=== PATIENT | female | born 1955 | race African-American/Black ===

== ENCOUNTER 2017-01-02 04:14 | Inpatient (IN) | payer MEDICARE, OTHER ==
[2017-01-02] VITALS (7 sets, daily range): BP systolic 105–190; BP diastolic 58–90; PULSE 76–98; RESP 18–20; TEMP 97.6–98.5; O2SAT 91–100
[~2017-01-02 04:14] MED LIST: CLAR10CA3 PO; DIAZ5TAB PO; DULO20 PO; HYDR-3288 PO; LOSA50TA PO; METF500T PO; PROB1CAP12 PO; ULTR50TA5 PO; VENTAER INH
[2017-01-02] MEDS ORDERED: SODIUM CHLOR 0.9% 1000 ML INJ 1,000 ML IV SCH ×2 (04:50→11:00)
[2017-01-02] MEDS ORDERED: ONDANSETRON HCL 4 MG/2 ML VIAL IVP ONE (05:00)
[2017-01-02] MEDS ORDERED: SODIUM CHLORIDE 0.9% FLUSH 10 ML FLUSH IV FLUSH PRN ×3 (05:00→16:00)
[2017-01-02] MEDS ORDERED: HYDROmorphone HCL PF 1 MG/ML VIAL IVS ONE (05:00)
--- NOTE | 2017-01-02 05:14 | RADRPT ---
EXAM DATE/TIME: 01/02/2017 04:46 [facility] COMPARISON: CHEST SINGLE AP, July 23, 2015, 15:28. INDICATIONS : Chest pain. MEDICAL HISTORY : Asthma. SURGICAL HISTORY : None. ENCOUNTER: Initial ACUITY: 1 day PAIN SCORE: 4/10 LOCATION: Bilateral lower chest FINDINGS: A single view of the chest demonstrates the lungs to be symmetrically aerated without evidence of mas s, infiltrate or effusion. The cardiomediastinal contours are unremarkable. Osseous structures are intact. CONCLUSION: No acute disease. No significant change has occurred. Elbert Castillo MD on January 02, 2017 at 5:12 Board Certified Radiologist. This report was verified electronically.
[2017-01-02 05:38] LABS: AUTOMATED NEUTROPHIL # 6.7 TH/MM3 (1.8-7.7); BASOPHIL # 0.1 TH/MM3 (0-0.2); BASOPHIL % 0.5 % (0.0-2.0); EOSINOPHIL % 0.5 % (0.0-4.0); HEMATOCRIT 34.1 % (35.0-46.0); HEMO FLAGS DIFF FINAL; LYMPH % 26.5 % (9.0-44.0); LYMPHOCYTE # 2.6 TH/MM3 (1.0-4.8); MEAN CELL VOLUME 93.3 FL (80.0-100.0); MEAN CORPUSCULAR HEMOGLOBIN 31.1 PG (27.0-34.0); MEAN CORPUSCULAR HGB CONC 33.4 % (32.0-36.0); NEUT % 67.5 % (16.0-70.0); PLATELET COUNT 287 TH/MM3 (150-450); RED BLOOD COUNT 3.65 MIL/MM3 (4.00-5.30); RED CELL DISTRIBUTION WIDTH 12.5 % (11.6-17.2); WHITE BLOOD COUNT 9.9 TH/MM3 (4.0-11.0)
--- NOTE | 2017-01-02 05:47 | PD ---
HPI Chief Complaint: Abdominal Pain Time Seen by Provider: 04:47 Travel History International Travel<30 days: No Contact w/Intl Traveler<30days: No Traveled to known affect area: No History of Present Illness HPI This is a 61-year-old female who has a history of a Pancho-en-Y gastric bypass by Dr. Felix who presents to the emergency department with one night of abdominal discomfort, constant, worsening, associated with nausea. She says she had a normal bowel movement earlier this evening. She denies any diarrhea, fevers or chills. She says she had pain like this once before right after she had her surgery and she had a bowel obstruction at that time. PFSH Past Medical History Hx Anticoagulant Therapy: No Arthritis: Yes Asthma: Yes Autoimmune Disease: No Blood Disorders: No Bipolar Disorder: No Anxiety: Yes Depression: No Heart Rhythm Problems: Yes Cancer: No Cardiac Catheterization: Yes Cardiovascular Problems: Yes (HTN) High Cholesterol: No Chemotherapy: No Chest Pain: Yes Congestive Heart Failure: Yes COPD: No Cerebrovascular Accident: No Diabetes: Yes Patient Takes Glucophage: Yes Diminished Hearing: No Endocrine: Yes Gastrointestinal Disorders: Yes (GERD) GERD: Yes Glaucoma: No Genitourinary: No Headaches: Yes Hepatitis: No Hiatal Hernia: No Hypertension: Yes Immune Disorder: No Implanted Vascular Access Dvce: Yes Kidney Stones: No Musculoskeletal: Yes (CHRONIC BACK PAIN, RIGHT KNEE PAIN) Neurologic: Yes (HX LUMBAR FUSION, PAIN LEFT SHOULDER INTO ARM ) Psychiatric: Yes (CLAUSTROPHOBIC) Reproductive: No Respiratory: No Immunizations Current: Yes Migraines: No Myocardial Infarction: No Radiation Therapy: No Renal Failure: No Seizures: No Sickle Cell Disease: No Sleep Apnea: Yes (uses c- pap) Thyroid Disease: Yes (HYPO) Ulcer: Yes PNEUMOCCOCAL Vaccine (Year): 1 Menopausal: Yes Past Surgical History Abdominal Surgery: Yes (GASTRIC BYPASS, HIATAL HERNIA REPAIR) AICD: No Appendectomy: No Arteriovenous Shunt: No Body Medical Devices: LUMBAR HARDWARE Cardiac Surgery: No Cholecystectomy: Yes Coronary Artery Bypass Graft: No Ear Surgery: No Endocrine Surgery: Yes (TORRES CARPAL TUNNEL SURGERY 02/2014) Eye Surgery: Yes (TORRES CATARACTS) Gynecologic Surgery: Yes (TOTAL ABDOMINAL HYSTERECTOMY) Hysterectomy: Yes Insulin Pump: No Joint Replacement: Yes (BILATERAL KNEES) Oral Surgery: No Pacemaker: No Thoracic Surgery: No Other Surgery: Yes (gastric bypass) Social History Alcohol Use: No Tobacco Use: No Substance Use: No Allergies-Medications (Allergen,Severity, Reaction): Coded Allergies: Seafood (Verified Allergy, Severe, HIVES , 04/23/16) PT STATES INTERMEDIATE REACTION PER PT HIVES AND TONGUE SWELLING Shellfish (Verified Allergy, Severe, HIVES, TONGUE SWELLS, 04/23/16) PT STATES AN INTERMEDIATE REACTION Nonsteroidal Anti-Inflammatory Agts (Verified Adverse Reaction, Severe, BLEEDING, 04/23/16) Aspirin (Verified Adverse Reaction, Intermediate, Bleeding, 04/23/16) Reported Meds & Prescriptions Reported Meds & Active Scripts Active Reported Acidophilus (Probiotic Product) 1 Cap Cap 1 Cap PO TID Ventolin Hfa 18 GM Inh (Albuterol Sulfate) 90 Mcg/Act Aer 2 Puff INH Q4H PRN Claritin (Loratadine) 10 Mg Cap 10 Mg PO HS Cymbalta DR (Duloxetine HCl) 20 Mg Capdr 20 Mg PO DAILY Diazepam 5 Mg Tab 5 Mg PO Q8HR PRN Losartan (Losartan Potassium) 50 Mg Tab 50 Mg PO BID [place] (Hydrocodone-Acetaminophen) 7.5-325 mg Tab 1-2 Tab PO Q6H PRN Ultram (Tramadol HCl) 50 Mg Tab 50 Mg PO Q6H PRN Metformin (Metformin HCl) 500 Mg Tab 500 Mg PO BIDPC With meals Review of Systems Except as stated in HPI: all other systems reviewed are Neg Physical Exam Narrative GENERAL:Well appearing, no acute distress SKIN: Focused skin assessment warm and dry. HEAD: Atraumatic. Normocephalic. EYES: Pupils equal and round. No injection or drainage. ENT: Moist mucous membranes NECK: Trachea midline. CARDIOVASCULAR: Regular rate and rhythm. No murmur appreciated. RESPIRATORY: Clear to auscultation. Breath sounds equal bilaterally. GASTROINTESTINAL: Abdomen soft, diffusely tender to palpation with no rebound or guarding. MUSCULOSKELETAL: No obvious deformities. NEUROLOGICAL: Awake and alert. No obvious cranial nerve deficits. Moving all extremities. PSYCHIATRIC: Appropriate mood and affect; insight and judgment normal. Data Data Last Documented VS Vital Signs Date Time Temp Pulse Resp B/P Pulse Ox O2 Delivery O2 Flow Rate FiO2 01/02/17 04:52 89 18 98 01/02/17 04:17 98.4 190/90 Room Air Orders Complete Blood Count With Diff (01/02/17 04:50) Comprehensive Metabolic Panel (01/02/17 04:50) Lipase (01/02/17 04:50) Ct Abd/Pel W Iv Contrast(Rout) (01/02/17 04:50) Iv Access Insert/Monitor (01/02/17 04:50) Ecg Monitoring (01/02/17 04:50) Oximetry (01/02/17 04:50) Ondansetron Inj (Zofran Inj) (01/02/17 05:00) Sodium Chlor 0.9% 1000 Ml Inj (Ns 1000 M (01/02/17 04:50) Sodium Chloride 0.9% Flush (Ns Flush) (01/02/17 05:00) Chest, Single Ap (01/02/17 04:50) Hydromorphone Pf Inj (Dilaudid Pf Inj) (01/02/17 05:00) Lactic Acid (01/02/17 04:50) Hydromorphone Pf Inj (Dilaudid Pf Inj) (01/02/17 06:00) Iohexol 350 Inj (Omnipaque 350 Inj) (01/02/17 06:22) Admit Order (Ed Use Only) (01/02/17 06:41) Labs Laboratory Tests Test 01/02/17 01/02/17 05:02 05:30 Sodium Level 140 MEQ/L Potassium Level 4.1 MEQ/L Chloride Level 103 MEQ/L Carbon Dioxide Level 27.1 MEQ/L Anion Gap 10 MEQ/L Blood Urea Nitrogen 12 MG/DL Creatinine 1.12 MG/DL Estimat Glomerular Filtration 59 ML/MIN Rate Random Glucose 118 MG/DL Lactic Acid Level 1.5 mmol/L Calcium Level 9.4 MG/DL Total Bilirubin 0.5 MG/DL Aspartate Amino Transf 33 U/L (AST/SGOT) Alanine Aminotransferase 56 U/L (ALT/SGPT) Alkaline Phosphatase 147 U/L Total Protein 8.8 GM/DL Albumin 3.9 GM/DL Lipase 387 U/L White Blood Count 9.9 TH/MM3 Red Blood Count 3.65 MIL/MM3 Hemoglobin 11.4 GM/DL Hematocrit 34.1 % Mean Corpuscular Volume 93.3 FL Mean Corpuscular Hemoglobin 31.1 PG Mean Corpuscular Hemoglobin 33.4 % Concent Red Cell Distribution Width 12.5 % Platelet Count 287 TH/MM3 Mean Platelet Volume 8.1 FL Neutrophils (%) (Auto) 67.5 % Lymphocytes (%) (Auto) 26.5 % Monocytes (%) (Auto) 5.0 % Eosinophils (%) (Auto) 0.5 % Basophils (%) (Auto) 0.5 % Neutrophils # (Auto) 6.7 TH/MM3 Lymphocytes # (Auto) 2.6 TH/MM3 Monocytes # (Auto) 0.5 TH/MM3 Eosinophils # (Auto) 0.0 TH/MM3 Basophils # (Auto) 0.1 TH/MM3 CBC Comment DIFF FINAL Differential Comment MDM Medical Decision Making Medical Screen Exam Complete: Yes Emergency Medical Condition: Yes Interpretation(s) Afebrile, no tachycardia, hypertensive No leukocytosis Anemia Electrolytes are reassuring Lactic acid is 1.5 Last 24 hours Impressions Chest X-Ray 01/02/17449 Signed Impressions: Service Date/Time: Monday, January 02, 2017 04:46 - CONCLUSION: No acute disease. No significant change has occurred. Elbert Castillo MD Abdomen/Pelvis CT 01/02/17449 Signed Impressions: Service Date/Time: Monday, January 02, 2017 06:04 - CONCLUSION: There are multiple mildly to moderately dilated loops of distal small bowel suggestive of either ileus or partial small bowel structure. The appendix is unremarkable. Elbert Castillo MD Differential Diagnosis Internal hernia, ulcer, bowel obstruction, perforation Narrative Course This is a 61-year-old female whose had a Pancho-en-Y in the past 2 presents to the emergency department with abdominal discomfort and vomiting. She was placed on a monitor and an IV was established. Upright plain films demonstrates no free air. Labs are obtained which are reassuring with a normal lactic acid. CT abdomen and pelvis demonstrates an ileus versus partial small bowel traction. Patient will be admitted to Dr. Tan for further management. Diagnosis Primary Impression: Partial small bowel obstruction Admitting Information Admitting Physician Requests: Admit Zakiya Ramos MD Jan 02, 2017 05:47
[2017-01-02 05:49] LABS: ANION GAP 10 MEQ/L (5-15); AST (GOT) 33 U/L (15-37); BICARBONATE 27.1 MEQ/L (21.0-32.0); BLOOD UREA NITROGEN 12 MG/DL (7-18); CHLORIDE 103 MEQ/L (98-107); GLOMERULAR FILTRATION RATE 59 ML/MIN (>89); POTASSIUM 4.1 MEQ/L (3.5-5.1); SODIUM (NA) 140 MEQ/L (136-145)
[2017-01-02 05:54] LABS: ALKALINE PHOSPHATASE 147 U/L (45-117); ALT (GPT) 56 U/L (10-53); TOTAL BILIRUBIN ADULT 0.5 MG/DL (0.2-1.0)
[2017-01-02] MEDS ORDERED: HYDROmorphone HCL PF 1 MG/ML VIAL IV PUSH ONE (06:00)
[2017-01-02] MEDS ORDERED: IOHEXOL 350 MG/ML 10 ML VIAL (for RAD DIAG) IV ONE (06:22)
--- NOTE | 2017-01-02 06:36 | RADRPT ---
EXAM DATE/TIME: 01/02/2017 06:04 [facility] COMPARISON: No previous studies available for comparison. INDICATIONS : Diffuse abdominal pain and nausea. IV CONTRAST: 88 cc Omnipaque 350 (iohexol) IV ORAL CONTRAST: No oral contrast ingested. RADIATION DOSE: 12.15 CTDIvol (mGy) MEDICAL HISTORY : Hypertension. Gastroesophageal reflux disease. Asthma. SURGICAL HISTORY : Gastric bypass. Cholecystectomy.Hysterectomy.Hernia repair. Lumbar fusion. ENCOUNTER: Initial ACUITY: 1 day PAIN SCALE: 10/10 LOCATION: All quadrants. TECHNIQUE: Volumetric scanning of the abdomen and pelvis was performed. Using automated exposure control and ad justment of the mA and/or kV according to patient size, radiation dose was kept as low as reasonably achievable to obtain optimal diagnostic quality images. DICOM format image data is available electro nically for review and comparison. FINDINGS: LOWER LUNGS: The visualized lower lungs are clear. LIVER: Homogeneous density without lesion. There is no dilation of the biliary tree. No gallbladder, surgi luis miguel removed. SPLEEN: Normal size without lesion. PANCREAS: Within normal limits. KIDNEYS: Normal in size and shape. There is no mass, stone or hydronephrosis. ADRENAL GLANDS: Within normal limits. VASCULAR: There is no aortic aneurysm. BOWEL/MESENTERY: There is evidence of previous abdominal surgery in the left upper quadrant at the level of the stomac h. Proximal small bowel is unremarkable. However, there are multiple mildly to moderately dilated loo ps of distal small bowel with fluid and air fluid levels. The appendix is unremarkable. No definite i nflammatory changes are seen. There is stool in the colon. No free fluid or loculated fluid collectio ns.. ABDOMINAL WALL: Within normal limits. RETROPERITONEUM: There is no lymphadenopathy. BLADDER: No wall thickening or mass. REPRODUCTIVE: Within normal limits. INGUINAL: There is no lymphadenopathy or hernia. MUSCULOSKELETAL: Within normal limits for patient age. There is evidence of previous lumbar spinal surgery with fusion involving the lower lumbar spine. There are some degenerative changes of the bony structures. CONCLUSION: There are multiple mildly to moderately dilated loops of distal small bowel suggestive of either ileu s or partial small bowel structure. The appendix is unremarkable. Elbert Castillo MD on January 02, 2017 at 6:29 Board Certified Radiologist. This report was verified electronically.
--- NOTE | 2017-01-02 08:41 | EKG ---
Date Performed: 01/02/2017 Time Performed: 04:42:52 PTAGE: 61 years EKG: Sinus rhythm NORMAL ECG PREVIOUS TRACING : 12/16/2015 09.19 DOCTOR: Timur Coulter Interpretating Date/Time 01/02/2017 08:40:14
[2017-01-02] MEDS ORDERED: HYDROmorphone HCL PF 1 MG/ML VIAL IV ONE (10:00)
[2017-01-02] MEDS ORDERED: MORPHINE SULFATE 4 MG/ML INJ IV PRN ×3 (10:15)
[2017-01-02] MEDS ORDERED: oxyCODONE/ACETAMINOPHEN 5 MG/325 MG TAB PO PRN ×3 (10:15→16:00)
[2017-01-02] MEDS ORDERED: PROPOFOL 200 MG/20 ML AMP IV ONE (11:56)
[2017-01-02] MEDS ORDERED: ePHEDrine/NS 25 MG/5 ML SYR IV ONE (11:56)
[2017-01-02] MEDS ORDERED: NEOSTIGMINE 3 MG/3 ML SYR IV ONE (11:57)
[2017-01-02] MEDS ORDERED: LACTATED RINGER'S 1000 ML INJ 1,000 ML IV ONE (11:57)
[2017-01-02] MEDS ORDERED: PHENYLEPH/NS 1000 MCG/10 ML SYR IV ONE (11:57)
[2017-01-02] MEDS ORDERED: fentaNYL CITRATE 250 MCG/5 ML AMP ONE (12:50)
[2017-01-02] MEDS ORDERED: MIDAZOLAM HCL 2 MG/2 ML VIAL ONE (12:52)
[2017-01-02] MEDS ORDERED: HYDROmorphone HCL PF 2 MG/ML VIAL ONE (13:11)
[2017-01-02] MEDS ORDERED: BUPIVACAINE/EPINEPHRINE 0.5% PF 10 ML VIAL ONE (14:49)
[2017-01-02] MEDS ORDERED: ceFAZolin 2 GM PREMIX 50 ML ONE (15:05)
[2017-01-02] MEDS ORDERED: METOCLOPRAMIDE HCL 10 MG/2 ML VIAL IVS PRN (16:00)
[2017-01-02] MEDS ORDERED: HYDROmorphone HCL PF 1 MG/ML VIAL IV PRN (16:00)
[2017-01-02] MEDS ORDERED: Post-op Orders (for Pharmacy) MISC XX ONE (16:00)
[2017-01-02] MEDS ORDERED: MAGNESIUM HYDROXIDE SUSP 30 ML CUP PO PRN (16:00)
[2017-01-02] MEDS ORDERED: ONDANSETRON HCL 4 MG/2 ML VIAL IV PRN (16:00)
[2017-01-02] MEDS ORDERED: GLUCAGON 1 MG/ML VIAL OTHER PRN (17:00)
[2017-01-02] MEDS: SODIUM CHLOR 0.9% 1000 ML INJ 1,000 ML IV SCH (17:00)
[2017-01-02] MEDS ORDERED: DEXTROSE 50% IN WATER 50 ML VIAL(D50) IV PUSH PRN (17:00)
[2017-01-02] MEDS ORDERED: DO NOT ADM ANY ANTICOAGULANT DRUGS PRN (17:45)
[2017-01-02] MEDS: metroNIDAZOLE 500 MG INJ 100 ML IV SCH (18:00)
--- NOTE | 2017-01-02 19:15 | MH ---
cc: ÁNGEL LEOS M.D. DATE OF ADMISSION 01/02/2017 DATE OF 1955 HISTORY This is a 61-year-old female with a history of laparoscopic Pancho-en-Y gastric bypass as well as total abdominal hysterectomy who presents to the emergency room with complaints of abdominal pain. The patient states the pain started the day prior to presentation. She had associated nausea and vomiting. She had a bowel movement this early a.m. as well as she has passed some gas as well. No fevers, chills. No urinary symptoms. PAST MEDICAL HISTORY Significant for coronary artery disease, hypertension, type 2 diabetes. PAST SURGICAL HISTORY Significant for above as well as cholecystectomy. Knee surgery. ALLERGIES SHE HAS ALLERGIES TO SEAFOOD, SHELLFISH AND NSAIDS. MEDICATIONS She is on medication at home that includes: 1. Metformin. 2. [place]. 3. Losartan. 4. Diazepam. 5. Cymbalta. 6. Ventolin. SOCIAL HISTORY She does not smoke or drink alcohol. FAMILY HISTORY Noncontributory. REVIEW OF SYSTEMS Significant for above. All other 10-point review negative. PHYSICAL EXAMINATION GENERAL: On exam she is laying in bed in distress secondary to pain. HEENT: Her pupils are equal and reactive. Trachea is midline. LUNGS: Respirations clear. CARDIOVASCULAR: Regular. GASTROINTESTINAL: Soft, positive tenderness in the lower abdomen. MUSCULOSKELETAL: No deformities. NEUROLOGICAL: Nonfocal. LABORATORY DATA The patient's blood work, her hemoglobin is 11, WBC 9.9. Her alk phos 147, creatinine 1.1. IMAGING STUDIES CAT scan of the abdomen and pelvis revealed dilated distal small bowel. ASSESSMENT This is a patient who has had multiple abdominal operations with findings of bowel obstruction. PLAN Will take the patient to the operating room for laparoscopy with possible lysis of adhesion, possible bowel resection. Risks and benefits explained to the patient to include but not be exclusive to infection, bleeding, solid organ injury, hollow organ injury. Technical aspects explained as well as pre and postoperative course. The patient verbalized understanding, consent was obtained. Will proceed to OR. MD JAN Aldana/HU /6:54 PM /7:09 PM
[2017-01-02] MEDS ORDERED: SODIUM CHLORIDE 0.9% FLUSH 10 ML FLUSH IV FLUSH SCH (21:00)
[2017-01-02] MEDS: SODIUM CHLORIDE 0.9% FLUSH 10 ML FLUSH IV FLUSH SCH (21:00)
[2017-01-02] MEDS: INSULIN NovoLIN REGULAR SUPPLEMENTAL SCALE SQ SCH (21:00)
[2017-01-02] MEDS: LOSARTAN 50 MG TAB PO SCH (21:53)
[2017-01-02] MEDS: DOCUSATE SODIUM 100 MG CAP PO SCH (21:53)
[2017-01-02 22:22] LABS: AUTOMATED NEUTROPHIL # 7.2 TH/MM3 (1.8-7.7); BASOPHIL % 0.1 % (0.0-2.0); HEMATOCRIT 35.8 % (35.0-46.0); HEMO FLAGS DIFF FINAL; LYMPH % 5.6 % (9.0-44.0); LYMPHOCYTE # 0.4 TH/MM3 (1.0-4.8); MEAN CELL VOLUME 92.5 FL (80.0-100.0); MEAN CORPUSCULAR HEMOGLOBIN 30.8 PG (27.0-34.0); MEAN CORPUSCULAR HGB CONC 33.3 % (32.0-36.0); MONO % 1.5 % (0.0-8.0); NEUT % 92.8 % (16.0-70.0); PLATELET COUNT 275 TH/MM3 (150-450); RED BLOOD COUNT 3.87 MIL/MM3 (4.00-5.30); RED CELL DISTRIBUTION WIDTH 12.6 % (11.6-17.2); WHITE BLOOD COUNT 7.7 TH/MM3 (4.0-11.0)
[2017-01-02 22:35] LABS: BICARBONATE 26.9 MEQ/L (21.0-32.0); POTASSIUM 4.3 MEQ/L (3.5-5.1)
[2017-01-03] MEDS: metroNIDAZOLE 500 MG INJ 100 ML IV SCH ×2 (03:38→09:42)
[2017-01-03 04:00] VITALS: BP 108/55; PULSE 75; RESP 16; TEMP 97.8; O2SAT 92
[2017-01-03] MEDS: INSULIN NovoLIN REGULAR SUPPLEMENTAL SCALE SQ SCH ×4 (05:47→21:43)
[2017-01-03 08:00] VITALS: BP 104/55; PULSE 78; RESP 17; TEMP 97.7; O2SAT 94
[2017-01-03 08:16] LABS: AUTOMATED NEUTROPHIL # 6.7 TH/MM3 (1.8-7.7); BASOPHIL % 0.1 % (0.0-2.0); HEMATOCRIT 32.2 % (35.0-46.0); HEMO FLAGS DIFF FINAL; LYMPH % 10.7 % (9.0-44.0); LYMPHOCYTE # 0.9 TH/MM3 (1.0-4.8); MEAN CELL VOLUME 92.4 FL (80.0-100.0); MEAN CORPUSCULAR HGB CONC 33.5 % (32.0-36.0); MONO % 5.1 % (0.0-8.0); NEUT % 84.1 % (16.0-70.0); PLATELET COUNT 262 TH/MM3 (150-450); RED BLOOD COUNT 3.49 MIL/MM3 (4.00-5.30)
[2017-01-03] MEDS ORDERED: PANTOPRAZOLE SODIUM 40 MG VIAL IV SCH (09:00)
[2017-01-03] MEDS: DOCUSATE SODIUM 100 MG CAP PO SCH ×2 (09:42→21:42)
[2017-01-03] MEDS: SODIUM CHLOR 0.9% 1000 ML INJ 1,000 ML IV SCH ×2 (09:42→11:58)
[2017-01-03] MEDS: SODIUM CHLORIDE 0.9% FLUSH 10 ML FLUSH IV FLUSH SCH ×2 (09:42→21:43)
[2017-01-03] MEDS: LOSARTAN 50 MG TAB PO SCH ×2 (09:42→21:42)
[2017-01-03] MEDS: DULoxetine HCl DR 20 MG CAP PO SCH (09:42)
[2017-01-03] MEDS ORDERED: PERC5TAB12 PO (10:33)
[2017-01-03] MEDS: oxyCODONE/ACETAMINOPHEN 10 MG/325 MG TAB PO PRN (11:22)
[2017-01-03 12:00] VITALS: BP 108/60; PULSE 73; RESP 17; TEMP 96.9; O2SAT 94
--- NOTE | 2017-01-03 12:13 | HHI.PR ---
Subjective Subjective Notes 61yo female POD# laparoscopic lysis of adhesions. Laying in bed, complains of pos-op tenderness. Tolerating clear liquid diet Objective Vitals/I&O Vital Signs, 24 Hour Date Time Temp Pulse Resp B/P Pulse Ox O2 Delivery O2 Flow Rate FiO2 01/03/17 08:00 97.7 78 17 104/55 94 01/03/17 04:00 97.8 75 16 108/55 92 01/02/17 23:43 98.5 76 18 105/58 94 01/02/17 22:05 91 Nasal Cannula 2.00 01/02/17 20:33 97.6 86 18 120/64 91 01/02/17 19:00 98.2 66 14 123/63 97 Nasal Cannula 2 01/02/17 18:00 66 14 130/65 97 Nasal Cannula 2 01/02/17 17:45 68 14 133/65 98 Nasal Cannula 2 01/02/17 17:30 98.1 66 14 124/67 97 Nasal Cannula 2 01/02/17 17:15 66 14 136/74 96 Nasal Cannula 2 01/02/17 17:00 67 14 133/74 97 Nasal Cannula 2 01/02/17 16:45 69 14 124/61 96 Nasal Cannula 2 01/02/17 16:30 77 14 124/60 96 Nasal Cannula 2 01/02/17 16:18 97.9 82 14 117/59 96 Nasal Cannula 2 Allergies Coded Allergies Seafood (Verified Allergy, Severe, HIVES , 04/23/16) PT STATES INTERMEDIATE REACTION PER PT HIVES AND TONGUE SWELLING Shellfish (Verified Allergy, Severe, HIVES, TONGUE SWELLS, 04/23/16) PT STATES AN INTERMEDIATE REACTION Nonsteroidal Anti-Inflammatory Agts (Verified Adverse Reaction, Severe, BLEEDING, 04/23/16) Aspirin (Verified Adverse Reaction, Intermediate, Bleeding, 04/23/16) Intake/Outtake 01/03/17 01/03/17 10:59 22:59 Intake Total 687 ml Output Total 400 ml Balance 287 ml Kunal-Yoan Tapia Procedure Category Date Status Time Pantoprazole MED 01/04/17 Logged (Protonix) 09:00 Diet Full Liquid DIET 01/03/17 Transmitted Lunch Laboratory Tests per Janis Test 01/02/17 01/03/17 21:02 07:22 White Blood Count 7.7 TH/MM3 8.0 TH/MM3 Red Blood Count 3.87 MIL/MM3 3.49 MIL/MM3 Sodium Level 139 MEQ/L Potassium Level 4.3 MEQ/L Blood Urea Nitrogen 11 MG/DL Active Scripts Active Percocet (Oxycodone-Acetaminophen) 5-325 mg Tab 1 Tab PO Q4H PRN Reported Acidophilus (Probiotic Product) 1 Cap Cap 1 Cap PO TID Ventolin Hfa 18 GM Inh (Albuterol Sulfate) 90 Mcg/Act Aer 2 Puff INH Q4H PRN Claritin (Loratadine) 10 Mg Cap 10 Mg PO HS Cymbalta DR (Duloxetine HCl) 20 Mg Capdr 20 Mg PO DAILY Diazepam 5 Mg Tab 5 Mg PO Q8HR PRN Losartan (Losartan Potassium) 50 Mg Tab 50 Mg PO BID [place] (Hydrocodone-Acetaminophen) 7.5-325 mg Tab 1-2 Tab PO Q6H PRN Ultram (Tramadol HCl) 50 Mg Tab 50 Mg PO Q6H PRN Metformin (Metformin HCl) 500 Mg Tab 500 Mg PO BIDPC With meals Vital Signs Date Time Temp Pulse Resp B/P Pulse Ox O2 Delivery O2 Flow Rate FiO2 01/03/17 08:00 97.7 78 17 104/55 94 01/02/17 22:05 Nasal Cannula 2.00 Labs Laboratory Tests Test 01/02/17 01/02/17 01/03/17 13:40 21:02 07:22 Blood Type A POSITIVE Antibody Screen NEGATIVE White Blood Count 7.7 8.0 Red Blood Count 3.87 3.49 Hemoglobin 11.9 10.8 Hematocrit 35.8 32.2 Mean Corpuscular Volume 92.5 92.4 Mean Corpuscular Hemoglobin 30.8 31.0 Mean Corpuscular Hemoglobin 33.3 33.5 Concent Red Cell Distribution Width 12.6 13.0 Platelet Count 275 262 Mean Platelet Volume 8.5 8.3 Neutrophils (%) (Auto) 92.8 84.1 Lymphocytes (%) (Auto) 5.6 10.7 Monocytes (%) (Auto) 1.5 5.1 Eosinophils (%) (Auto) 0.0 0.0 Basophils (%) (Auto) 0.1 0.1 Neutrophils # (Auto) 7.2 6.7 Lymphocytes # (Auto) 0.4 0.9 Monocytes # (Auto) 0.1 0.4 Eosinophils # (Auto) 0.0 0.0 Basophils # (Auto) 0.0 0.0 CBC Comment DIFF FINAL DIFF FINAL Differential Comment Sodium Level 139 Potassium Level 4.3 Chloride Level 104 Carbon Dioxide Level 26.9 Anion Gap 8 Blood Urea Nitrogen 11 Creatinine 0.83 Estimat Glomerular Filtration 84 Rate Random Glucose 142 Calcium Level 8.9 Radiology Last Impressions Chest X-Ray 01/02/17449 Signed Impressions: Service Date/Time: Monday, January 02, 2017 04:46 - CONCLUSION: No acute disease. No significant change has occurred. Elbert Castillo MD Abdomen/Pelvis CT 01/02/17449 Signed Impressions: Service Date/Time: Monday, January 02, 2017 06:04 - CONCLUSION: There are multiple mildly to moderately dilated loops of distal small bowel suggestive of either ileus or partial small bowel structure. The appendix is unremarkable. Elbert Castillo MD Cardiovascular: Regular Lungs: Clear Abdomen: Post-op tenderness Extremities: Perfused Wound Wound : Wound Location: Abdomen Appearance: Clean & Dry A/P Assessment and Plan Advance diet as tolerated to softs Continue with PPI Continue with frequent ambulation Discharge Planning D/C home most likely tomorrow if doing well with diet Yoan Tapia [facility] Jan 03, 2017 12:13
--- NOTE | 2017-01-03 13:28 | MP ---
cc: ÁNGEL FELIX DATE OF SURGERY 01/03/2017 PREOPERATIVE DIAGNOSIS Bowel obstruction. POSTOPERATIVE DIAGNOSIS Bowel obstruction. PROCEDURE Laparoscopy with lysis of adhesions. SURGEON Ángel Felix MD ANESTHESIA General endotracheal anesthesia. ESTIMATED BLOOD LOSS Scant. FINDINGS Pelvic adhesions causing bowel obstruction. The patient had some adhesions in her upper abdomen at her gastrojejunostomy without obstruction. There is no internal hernias identified. The biliopancreatic limb as well as the Pancho limb appeared to be nondilated. The distal small bowel was dilated. There was a knuckle of bowel within the adhesive band that was dusky. Once the band was released, this segment of bowel perked up and appeared to of normal color. SPECIMENS None. COMPLICATIONS None. OPERATION The patient was brought to the operating room, placed on the operating table in supine position. Bilateral sequential inflation devices were placed on the lower extremities, general anesthesia instituted, Hennessy catheter placed, antibiotics initiated. The abdomen was prepped and draped sterilely. A point in the left upper quadrant was anesthetized with 0.25% Marcaine with epinephrine. A skin incision was made, a 5-mm OptiView port placed under direct vision and pneumoperitoneum created. Under direct vision a 5-mm right upper quadrant port and a 5-mm left lower quadrant port was placed. Prior to placement of all ports, the skin and peritoneum were anesthetized with 0.25% Marcaine with epinephrine. The abdominal cavity was inspected with findings as above. The adhesive band in the pelvis was focused on and this was released. The bowel caught within this bind perked up. The bowel was inspected to the terminal ileum. The bowel distal to this was decompressed. There were adhesions of the terminal ileum to the pelvis which were taken down. The bowel was inspected up to the jejunojejunostomy. There was a dilated segment distally that went into the decompressed segment. The rest of the findings were as above. At this point the operation was terminated. CO2 was released, all ports removed, all skin incisions closed with 4-0 Monocryl. The abdominal wall was cleaned and a sterile dressing placed. The patient was awakened and taken to the recovery room. MD JAN Aldana/JOSEPHINE /6:58 PM /1:19 PM
[2017-01-03] MEDS: ENOXAPARIN SODIUM 40 MG/0.4 ML SYRINGE SQ SCH (15:04)
[2017-01-03 16:00] VITALS: BP 105/59; PULSE 76; RESP 17; TEMP 97.2; O2SAT 95
[2017-01-03 20:00] VITALS: BP 124/63; PULSE 83; RESP 18; TEMP 97.6; O2SAT 98
[2017-01-04] VITALS: BP 133/63; PULSE 62; RESP 18; TEMP 98.1; O2SAT 94
[2017-01-04] MEDS: oxyCODONE/ACETAMINOPHEN 10 MG/325 MG TAB PO PRN (00:01)
[2017-01-04] MEDS: INSULIN NovoLIN REGULAR SUPPLEMENTAL SCALE SQ SCH ×3 (06:19→16:00)
[2017-01-04] MEDS: SODIUM CHLOR 0.9% 1000 ML INJ 1,000 ML IV SCH ×2 (07:58→08:09)
[2017-01-04 08:00] VITALS: BP 121/72; PULSE 69; RESP 17; TEMP 97.9; O2SAT 94
[2017-01-04] MEDS: SODIUM CHLORIDE 0.9% FLUSH 10 ML FLUSH IV FLUSH SCH (08:08)
[2017-01-04] MEDS: LOSARTAN 50 MG TAB PO SCH (08:08)
[2017-01-04] MEDS: DULoxetine HCl DR 20 MG CAP PO SCH (08:08)
[2017-01-04] MEDS: DOCUSATE SODIUM 100 MG CAP PO SCH (08:08)
[2017-01-04] MEDS ORDERED: PANTOPRAZOLE SODIUM 40 MG VIAL IV SCH (09:00)
[2017-01-04] MEDS ORDERED: PANTOPRAZOLE SOD 40 MG DELAYED RELEASE TAB PO SCH (09:00)
[2017-01-04 11:53] VITALS: O2SAT 98
[2017-01-04 12:00] VITALS: BP 115/74; PULSE 75; RESP 17; TEMP 98.1; O2SAT 96
--- NOTE | 2017-01-04 12:24 | HHI.PR ---
Subjective Subjective Notes 61yo female POD# laparoscopic lysis of adhesions, SBO. Sitting up in bed. Abd pain better. Denies nausea or vomiting. Tolerating clears Objective Vitals/I&O Vital Signs Date Time Temp Pulse Resp B/P Pulse Ox O2 Delivery O2 Flow Rate FiO2 01/04/17 08:12 16 01/04/17 08:00 97.9 69 121/72 94 01/02/17 22:05 Nasal Cannula 2.00 Radiology Last Impressions Chest X-Ray 01/02/17449 Signed Impressions: Service Date/Time: Monday, January 02, 2017 04:46 - CONCLUSION: No acute disease. No significant change has occurred. Elbert Castillo MD Abdomen/Pelvis CT 01/02/17449 Signed Impressions: Service Date/Time: Monday, January 02, 2017 06:04 - CONCLUSION: There are multiple mildly to moderately dilated loops of distal small bowel suggestive of either ileus or partial small bowel structure. The appendix is unremarkable. Elbert Castillo MD Cardiovascular: Regular Lungs: Clear Abdomen: Post-op tenderness Wound Wound : Wound Location: Abdomen Appearance: Clean & Dry A/P Assessment and Plan Advance diet to softs Continue with PPI Continue with frequent ambulation Discharge Planning D/C home most likely today if doing well with diet Yoan Tapia Jan 04, 2017 12:23
[2017-01-04] MEDS: ENOXAPARIN SODIUM 40 MG/0.4 ML SYRINGE SQ SCH (14:58)
[2017-01-04 16:00] VITALS: BP 129/72; PULSE 86; RESP 17; TEMP 98.6; O2SAT 99
[2017-01-04 17:40] VITALS: O2SAT 99
== END 2017-01-04 18:48 | disposition home or self-care (01) | DRG 337 ==
LOC: NEPE 04:14 → NEDA 06:43 → N07B 19:34
PROVIDERS: ADMIT Surgery; ATTEND Surgery
PROC: 0DNW4ZZ Release Peritoneum, Percutaneous Endoscopic Approach (ICD-10-PCS; principal; 2017-01-03)
DX: K56.5 Intestinal adhesions [bands] with obstruction (postinfection) (principal); E11.42 Type 2 diabetes mellitus with diabetic polyneuropathy; J45.909 Unspecified asthma, uncomplicated; I10 Essential (primary) hypertension; F41.9 Anxiety disorder, unspecified; K21.9 Gastro-esophageal reflux disease without esophagitis; E03.9 Hypothyroidism, unspecified; I25.10 Atherosclerotic heart disease of native coronary artery without angina pectoris; Z98.1 Arthrodesis status; Z79.84 Long term (current) use of oral hypoglycemic drugs
CPT/HCPCS: 71010; 74177; 80048; 80053; 82948; 83605; 83690; 85025; 86850; 86900; 86901; 93005; 94150; 96361; 96374; 96375; C9113; J0690; J1170; J1650; J2250; J2370; J2405; J2710; J3010; J7030; J7120; Q9967

== ENCOUNTER → 2017-04-26 | Outpatient (CLI) | payer MEDICARE, OTHER ==
[~2017-04-26] MED LIST changes: +COMMODE 3-IN-11 MIS; +CPMMACHINE; +ENOX30P SQ; +HYDR-3366 PO; +PERC5TAB12 PO; +TRAM50 PO; -ULTR50TA5 PO; +WALKER WHEELS/F1 MIS
== END ==
LOC: CPRE 11:38
PROVIDERS: ATTEND Orthopaedic Surgery Sports Medicine
DX: M79.609 Pain in unspecified limb (principal)

== ENCOUNTER 2017-05-13 08:24 | Inpatient (IN) | payer MEDICARE, OTHER ==
[~2017-05-13] VITALS: Ht 165.1 cm; Wt 100.4 kg
[~2017-05-13 08:24] MED LIST changes: -COMMODE 3-IN-11 MIS; -CPMMACHINE; -ENOX30P SQ; -HYDR-3288 PO; -HYDR-3366 PO; -WALKER WHEELS/F1 MIS
[2017-05-13] MEDS ORDERED: TRANEXAMIC ACID IV SCH (09:15)
[2017-05-13] MEDS ORDERED: SODIUM CHLORIDE 0.9% IV SCH (09:15)
[2017-05-13] MEDS ORDERED: VANCOMYCIN 1000 MG/NS 250 ML (for <70 kg) IV SCH ×2 (09:15)
[2017-05-13] MEDS ORDERED: ceFAZolin 1,000 MG/NS 100 ML IV SCH ×2 (09:15)
[2017-05-13] MEDS ORDERED: METOPROLOL TARTRATE 25 MG TAB PO PRN (09:15)
[2017-05-13] MEDS ORDERED: POVIDONE IODINE 7.5% SCRUB 118 ML BOTTLE TOPICAL SCH (09:15)
[2017-05-13] MEDS ORDERED: ROPIVACAINE PERI-ARTICULAR INJECTION. P-ARTICULR SCH ×5 (09:15)
[2017-05-13] MEDS ORDERED: SODIUM CHLORID 0.9% 500 ML IV PRN (09:15)
[2017-05-13] MEDS ORDERED: LACTATED RINGER'S 1000 ML IV PRN (09:15)
[2017-05-13] MEDS ORDERED: POVIDONE IODINE 5% (ANTISEPSIS KIT) 4 APPLICATIONS EACH NARE PRN (09:15)
[2017-05-13] MEDS ORDERED: CHLORHEXIDINE GLUCONATE 2 % 1 PACK (2 CLOTHS) TOPICAL PRN (09:15)
[2017-05-13] MEDS ORDERED: DEXAMETHASONE SOD PHOS 20 MG/5 ML VIAL IV SCH (09:15)
[2017-05-13] MEDS ORDERED: TRANEXAMIC PERI-ARTICULAR 3,000 MG/NS 100 ML P-ARTICULR SCH ×2 (09:15)
[2017-05-13] MEDS ORDERED: CHLORHEXIDINE GLUCONATE 4% SOLN 120 ML BTL TOPICAL SCH (09:15)
[2017-05-13] MEDS ORDERED: GENTAMICIN SULFATE 80 MG/2 ML VIAL ONE ×2 (09:32→09:33)
[2017-05-13] MEDS ORDERED: PERC5TAB12 PO (09:41)
[2017-05-13] MEDS ORDERED: ENOX30P SQ (09:42)
[2017-05-13] MEDS ORDERED: ACETAMINOPHEN/HYDROcodone 325 MG/7.5 MG TAB PO PRN (09:45)
[2017-05-13] MEDS ORDERED: NALOXONE HCL 0.4 MG/ML AMP IV PUSH PRN (09:45)
[2017-05-13] MEDS ORDERED: ONDANSETRON HCL 4 MG/2 ML VIAL IVP PRN (09:45)
[2017-05-13] MEDS ORDERED: ZOLPIDEM TARTRATE 5 MG TAB PO PRN (09:45)
[2017-05-13] MEDS ORDERED: BISACODYL 10 MG SUPP RECTAL PRN (09:45)
[2017-05-13] MEDS ORDERED: SODIUM CHLORIDE 0.9% FLUSH 5 ML FLUSH IVF PRN (09:45)
[2017-05-13] MEDS ORDERED: diphenhydrAMINE HCL 50 MG/ML VIAL IV PUSH PRN (09:45)
[2017-05-13] MEDS ORDERED: Post-op Orders (for Pharmacy) MISC XX ONE (09:45)
[2017-05-13] MEDS ORDERED: DIAZEPAM 5 MG TAB PO PRN (09:45)
[2017-05-13] MEDS ORDERED: MORPHINE SULFATE 4 MG/ML INJ IV PUSH PRN (09:45)
[2017-05-13] MEDS ORDERED: ACETAMINOPHEN 1000 MG/100 ML 100 ML IV ONE (10:14)
[2017-05-13] MEDS ORDERED: HYDROmorphone HCL PF 2 MG/ML VIAL ONE (12:15)
[2017-05-13] MEDS ORDERED: KETAMINE HCL 500 MG/5 ML VIAL ONE (12:16)
[2017-05-13] MEDS ORDERED: *MEPERIDINE 25 MG INJ VIAL PERIprocedural Use ONLY ONE (13:25)
[2017-05-13] MEDS ORDERED: DO NOT ADM ANY ANTICOAGULANT DRUGS PRN (13:26)
[2017-05-13] MEDS ORDERED: *morphine SULFATE 8 MG/ML PERIprocedure ONLY ONE ×2 (14:01→14:50)
[2017-05-13] MEDS: SODIUM CHLOR 0.9% 1000 ML INJ 1,000 ML IV SCH ×2 (14:06→21:22)
--- NOTE | 2017-05-13 14:12 | MP ---
cc: FRANSISCA MCGEE M.D. DATE OF SURGERY: 05/13/2017 PREOPERATIVE DIAGNOSIS Left knee failed arthroplasty. POSTOPERATIVE DIAGNOSIS Left knee failed arthroplasty. PROCEDURE Revision left total knee arthroplasty. SURGEON Dr. Fransisca Mcgee. HARD METALS ENGRAVER HAND Fransisca Benítez PA-C. ANESTHESIA General with an adductor canal nerve block. ESTIMATED BLOOD LOSS 100 cc. COMPLICATIONS None. IMPLANTS USED DePuy Attune, size 5 posterior stabilized femoral component, size 5 rotating platform tibial baseplate, size 10 mm polyethylene tibial insert, size 35 patella. JUSTIFICATION The patient is a 61-year-old female who has undergone a previous left knee arthroplasty procedure several years ago. She has had increasing pain and swelling of her knee. X-ray did confirm evidence of some loosening as well as advancement of her osteoarthritis. She has failed extensive prior conservative treatment and was counseled as to the risks, benefits and alternatives to a total knee arthroplasty. The risks were discussed which include but are not limited to anesthesia, bleeding, infection, damage to nerves and blood vessels, pain, stiffness, failure of hardware, blood clots, pulmonary embolism and even . The patient's pain is severe. It does interfere with activities of daily living. She did wish to proceed with revision surgery. PROCEDURE IN DETAIL A written consent was obtained. The patient was identified by name, taken to the operating room and placed supine on the operating table. General anesthesia was administered as well as two grams of IV Ancef and one gram of IV vancomycin. A well-padded tourniquet was placed on the left thigh. The left lower extremity was prepped and draped using isopropyl alcohol, Hibiclens solution and ChloraPrep solution. After a timeout was performed an Esmarch bandage was used to exsanguinate the left lower extremity and the tourniquet inflated to 300 mmHg. A longitudinal incision was made over the anterior aspect of the left knee. A medial parapatellar arthrotomy incision was performed. The patella was everted. A patellar resection guide was used to resect 9 mm of patella. A size 35 mm guide was placed. Three drill holes were placed and the 35 mm patellar trial fit well. Attention was turned to the femur where a flexible osteotome was used to excise the distal femoral component along with an oscillating saw. An intramedullary guide melvin was placed and the distal femoral guide was set to remove 11 mm of distal femur 5 degrees off the anatomic valgus axis alignment. An oscillating saw was used to perform the distal femoral cut. Attention was turned to the tibia where a flexible osteotome along with an oscillating saw was used to excise the tibial component. The extramedullary tibial guide was set to remove 1 mm below the lowest portion along the medial tibial plateau. The tibial guide was pinned in place. The tibia cut was performed. A 5 mm spacer block showed full extension with hyperextension. Attention was turned back to the femur where AP sizing block measured a size 5. The anterior reference 3 degree external rotation guide was used to pin a size [address] with measuring the epicondylar axis. An oscillating saw was used to perform the anterior, posterior and chamfer cuts. A size 5 PCL box guide was pinned in place and the PCL was box cut with an oscillating saw. The medial and lateral meniscus remnants were removed as well as bone and soft tissue debris from the posterior portion of the knee. A size 5 tibial baseplate was pinned in place and the tibia was drilled and punched. The trial components were evaluated and the final components cemented in place. With the current components the leg could achieve full extension to 0 degrees and flexion to 140. No evidence of tibial lift-off. Varus-valgus balance appeared appropriate and symmetric. The patella was noted to track centrally. The tourniquet was deflated. Bovie cautery was used for hemostasis. The surgical wound was thoroughly irrigated with sterile saline pulse lavage antibiotic-impregnated solution. The arthrotomy incision was closed with #1 Vicryl suture, the subcutaneous layer with 2-0 Vicryl suture and the skin was closed with Dermabond. Sterile dressing was applied. The patient tolerated the procedure with no intraoperative complications noted. Fransisca Benítez, physician surgery assistant certified, was present during the entire procedure to include patient positioning and the procedure itself. The medical necessity of a physician surgery assistant was indicated in this case due to the complexity of the procedure. He assisted with appropriate manipulation of the leg and also retraction of muscle, tendon, bone and neurovascular structures. He assisted with removal of the prosthesis as well as bone cuts and implantation of the prosthetic revision replacement. MD BONNIE Lockett/FELIPE /12:58 PM /1:53 PM
--- NOTE | 2017-05-13 14:42 | RADRPT ---
EXAM DATE/TIME: 05/13/2017 13:57 [place] COMPARISON: No previous studies available for comparison. INDICATIONS : Post op left knee surgery. MEDICAL HISTORY : None. SURGICAL HISTORY : None. ENCOUNTER: Initial ACUITY: 1 day PAIN SCORE: 10/10 LOCATION: Left knee FINDINGS: 2 views of the knee show a total knee prosthesis in good position. No fracture or dislocation is obse rved. Soft tissue swelling is noted. Air and fluid noted within the joint. CONCLUSION: Total knee arthroplasty in good position. Salazar Villatoro Jr., MD on May 13, 2017 at 14:40 Board Certified Radiologist. This report was verified electronically.
--- NOTE | 2017-05-13 14:46 | PD.CONS ---
HPI Service [facility] Hospitalists Consult Requested By Dr. Wallace Reason for Consult Medical management status post revision left total knee arthroplasty Primary Care Physician Blu Magana MD Diagnoses: History of Present Illness This is a 61-year-old female in for [place] Citizen male patient with past medical history which includes diabetes mellitus type 2, hypertension and prior hallucinations and disorientation post anesthesia. Patient is status post revision of left total knee arthroplasty by Dr. Wallace 05/13/2017. We've been consulted for assistance with postoperative medical management. Patient evaluated in PACU is drowsy postanesthesia denies disorientation or hallucinations. Patient reports burning sensation in the left lower extremity but offers no other complaints at this time. Patient denies shortness of breath chest pain nausea vomiting diarrhea constipation fevers or chills. Prior to the operation today patient reports she was in her normal state of health Review of Systems Constitutional: DENIES: Fatigue, Fever, Chills Eyes: DENIES: Blurred vision, Diplopia, Vision loss Respiratory: DENIES: Cough, Sputum production, Shortness of breath Cardiovascular: DENIES: Chest pain, Palpitations, Dyspnea on Exertion Gastrointestinal: DENIES: Abdominal pain, Constipation, Diarrhea Musculoskeletal: COMPLAINS OF: Joint pain (burning left lower extremity ) Neurologic: DENIES: Headache, Seizures, Speech Problems Psychiatric: DENIES: Anxiety, Confusion, Depression Past Family Social History Past Medical History diabetes mellitus type 2, hypertension and prior hallucinations and disorientation post anesthesia Past Surgical History Surgery, cataract surgery EGD, colonoscopy, gastric bypass, hysterectomy, left total knee arthroplasty and cholecystectomy Reported Medications Lovenox Inj (Enoxaparin Sodium) 30 Mg/0.3 Ml Syr 30 Mg SQ DAILY Percocet (Oxycodone-Acetaminophen) 5-325 mg Tab 1-2 Tab PO Q4H PRN Percocet (Oxycodone-Acetaminophen) 5-325 mg Tab 1 Tab PO Q4H PRN Acidophilus (Probiotic Product) 1 Cap Cap 1 Cap PO TID Ventolin Hfa 18 GM Inh (Albuterol Sulfate) 90 Mcg/Act Aer 2 Puff INH Q4H PRN Claritin (Loratadine) 10 Mg Cap 10 Mg PO HS Cymbalta DR (Duloxetine HCl) 20 Mg Capdr 20 Mg PO DAILY Diazepam 5 Mg Tab 5 Mg PO Q8HR PRN Losartan (Losartan Potassium) 50 Mg Tab 50 Mg PO BID Ultram (Tramadol HCl) 50 Mg Tab 50 Mg PO Q6H PRN Metformin (Metformin HCl) 500 Mg Tab 500 Mg PO BIDPC With meals Allergies: Coded Allergies: Fish Containing Products (Verified Allergy, Severe, HIVES , 04/26/17) PT STATES INTERMEDIATE REACTION PER PT HIVES AND TONGUE SWELLING shellfish derived (Verified Allergy, Severe, HIVES, TONGUE SWELLS, ) PT STATES AN INTERMEDIATE REACTION diclofenac (Verified Adverse Reaction, Severe, BLEEDING, 04/26/17) etodolac (Verified Adverse Reaction, Severe, BLEEDING, 04/26/17) flurbiprofen (Verified Adverse Reaction, Severe, BLEEDING, 04/26/17) ibuprofen (Verified Adverse Reaction, Severe, BLEEDING, 04/26/17) indomethacin (Verified Adverse Reaction, Severe, BLEEDING, 04/26/17) ketoprofen (Verified Adverse Reaction, Severe, BLEEDING, 04/26/17) ketorolac (Verified Adverse Reaction, Severe, BLEEDING, 04/26/17) naproxen (Verified Adverse Reaction, Severe, BLEEDING, 04/26/17) oxaprozin (Verified Adverse Reaction, Severe, BLEEDING, 04/26/17) aspirin (Verified Adverse Reaction, Intermediate, Bleeding, 04/26/17) Active Ordered Medications Current Medications Medications (Trade) Dose Ordered Sig/Wade Route Start Time Stop Time Status Last Admin Lactated Ringer's 1,000 ml @ 30 mls/hr Q24H PRN IV 05/13/17 09:15 05/16/17 09:14 05/13/17 09:00 Sodium Chloride 500 ml @ 30 mls/hr [id number] PRN IV 05/13/17 09:15 05/16/17 09:14 (Lopressor) 25 mg CHAIR FRAME BUILDER PRN PO 05/13/17 09:15 05/16/17 09:14 (Betadine 5% Antisepsis Kit) 1 applic CHAIR FRAME BUILDER PRN EACH NARE 05/13/17 09:15 05/16/17 09:14 (Chlorhexidine 2% Cloth) 3 pack CHAIR FRAME BUILDER PRN TOPICAL 05/13/17 09:15 05/16/17 09:14 05/13/17 08:30 (Betadine 7.5% Scrub) 1 applic ONCE TOPICAL 05/13/17 09:15 05/16/17 09:14 (Hibiclens 4% Top Soln) 1 applic ONCE TOPICAL 05/13/17 09:15 05/16/17 09:14 Cefazolin Sodium 1000 mg/Sodium Chloride 100 ml @ 200 mls/hr CHAIR FRAME BUILDER IV 05/13/17 09:15 05/16/17 09:14 05/13/17 11:00 Vancomycin HCl 1000 mg/Sodium Chloride 250 ml @ 250 mls/hr CHAIR FRAME BUILDER IV 05/13/17 09:15 05/16/17 09:14 05/13/17 11:00 Tranexamic Acid 1506 mg/Sodium Chloride 115.06 ml @ 200 mls/ hr ONCE IV 05/13/17 09:15 05/13/17 17:00 05/13/17 11:13 Ropivacaine 24.63 ml/Ketorolac Tromethamine 30 mg/Epinephrine HCl 0.5 mg/ Clonidine 80 mcg/ Sodium Chloride 100 ml @ 200 mls/hr ONCE P-ARTICULR 05/13/17 09:15 05/13/17 17:00 05/13/17 11:41 (Valium) 5 mg Q8HR PRN PO 05/13/17 09:45 (Cymbalta Dr) 20 mg DAILY PO 05/14/17 09:00 (Cozaar) 50 mg BID PO 05/13/17 21:00 (Glucophage) 500 mg BIDPC PO 05/13/17 18:00 Sodium Chloride 1,000 ml @ 100 mls/hr Q10H IV 05/13/17 10:00 05/13/17 14:06 (NS Flush) 2 ml UNSCH PRN IVF 05/13/17 09:45 (NS Flush) 2 ml BID IVF 05/13/17 21:00 Cefazolin Sodium 1000 mg/Sodium Chloride 100 ml @ 200 mls/hr Q6H IV 05/13/17 17:00 05/14/17 05:29 (Lovenox Inj) 30 mg Q24H SQ 05/14/17 01:00 (Morphine Inj) 3 mg Q3H PRN IV PUSH 05/13/17 09:45 ([place] 7.5-325 Mg) 1 tab Q4H PRN PO 05/13/17 09:45 ([place] 7.5-325 Mg) 2 tab Q4H PRN PO 05/13/17 09:45 05/13/17 15:52 (Theragran M Tab) 1 tab BID PO 05/14/17 21:00 07/13/17 20:59 (Zofran Inj) 4 mg Q6H PRN IVP 05/13/17 09:45 05/13/17 15:23 (Colace) 100 mg BID PO 05/14/17 21:00 (Ambien) 5 mg HS PRN PO 05/13/17 09:45 (Dulcolax Supp) 10 mg DAILY PRN RECTAL 05/13/17 09:45 (Narcan Inj) 0.4 mg UNSCH PRN IV PUSH 05/13/17 09:45 (Benadryl Inj) 25 mg Q6H PRN IV PUSH 05/13/17 09:45 Miscellaneous Information ALL NURSING DEPARTME... UNSCH PRN .XX 05/13/17 13:26 05/14/17 13:25 Family History Reviewed and noncontributory Social History Patient denies EtOH use tobacco use or illicit drug use Physical Exam Vital Signs Vital Signs Date Time Temp Pulse Resp B/P (MAP) Pulse Ox O2 Delivery O2 Flow Rate FiO2 05/13/17 13:25 97.4 105 20 140/86 (104) 98 Simple Mask 2 05/13/17 09:15 98.1 70 16 139/85 (103) 97 Physical Exam GENERAL: This is an obese, well-developed patient, drowsy postanesthesia but in no acute distress SKIN: Postoperative dressing dry and intact. Lower extremity HEAD: Atraumatic. Normocephalic. No temporal or scalp tenderness. EYES: Extraocular motions intact. No scleral icterus. No injection or drainage. CARDIOVASCULAR: Regular rate and rhythm RESPIRATORY: Clear to auscultation. Breath sounds equal bilaterally. GASTROINTESTINAL: Abdomen soft, non-tender, nondistended. Hypoactive bowel sounds MUSCULOSKELETAL: Extremities without clubbing, cyanosis, or edema. No joint tenderness, effusion, or edema noted. No calf tenderness. Negative Homans sign bilaterally. With the exception of left upper extremity postoperative dressing dry and intact NEUROLOGICAL: Drowsy postanesthesia denies hallucinations or confusion. No focal deficits appreciated. Motor and sensory grossly within normal limits. Five out of 5 muscle strength in all muscle groups, with the exception of left lower extremity. Normal speech. Assessment and Plan Problem List: (1) Failed total left knee replacement ICD Codes: T84.093A - Other mechanical complication of internal left knee prosthesis, initial encounter Plan: Failed left total knee replacement Provisional left total knee arthroplasty 01/03/2016 Patient underwent revision of left total knee arthroplasty today 05/13/[address] Rodrigo Perez as needed for pain PT CBC and BMP in a.m. Diabetes mellitus type 2 Diabetic diet Continue patient's home metformin 500 mg by mouth twice a day Hypertension Continue patient's home losartan 50 mg twice a day Monitor blood pressure trend Depression Continue patient's home Cymbalta DVT prophylaxis with Lovenox 39 g subcutaneous every 24 hours per orthopedic surgery (2) Hypothyroidism ICD Codes: E03.9 - Hypothyroidism, unspecified Status: Chronic (3) Diabetes ICD Codes: E11.9 - Type 2 diabetes mellitus without complications Status: Chronic (4) HTN (hypertension) ICD Codes: I10 - Essential (primary) hypertension Status: Chronic Jayjay Nava MD May 13, 2017 14:46 Marli Sanders May 13, 2017 16:29
[2017-05-13 15:27] VITALS: BP 135/72; PULSE 84; RESP 18; TEMP 96.5; O2SAT 95
[2017-05-13] MEDS: ACETAMINOPHEN/HYDROcodone 325 MG/7.5 MG TAB PO PRN ×2 (15:52→21:16)
[2017-05-13] MEDS: metFORMIN HCL 500 MG TAB PO SCH (17:43)
[2017-05-13 20:35] VITALS: BP 131/70; PULSE 66; RESP 18; TEMP 96.7; O2SAT 95
[2017-05-13] MEDS: SODIUM CHLORIDE 0.9% FLUSH 5 ML FLUSH IVF SCH (21:00)
[2017-05-13] MEDS: LOSARTAN 50 MG TAB PO SCH (21:16)
[2017-05-13 22:00] VITALS: O2SAT 94
[2017-05-13 23:50] VITALS: BP_SYST 110; BP_SYST 114; BP_DIAS 58; BP_DIAS 69; PULSE 68; RESP 17; RESP 18; TEMP 96.9; O2SAT 97
[2017-05-14] VITALS (8 sets, daily range): BP systolic 105–128; BP diastolic 56–71; PULSE 59–77; RESP 16–19; TEMP 96.7–98.4; O2SAT 93–98
[2017-05-14] MEDS: SODIUM CHLOR 0.9% 1000 ML INJ 1,000 ML IV SCH ×3 (01:49→20:22)
[2017-05-14] MEDS: ENOXAPARIN SODIUM 30 MG/0.3 ML SYRINGE SQ SCH (01:49)
[2017-05-14] MEDS: ACETAMINOPHEN/HYDROcodone 325 MG/7.5 MG TAB PO PRN ×4 (05:08→20:21)
[2017-05-14] MEDS: LOSARTAN 50 MG TAB PO SCH ×2 (07:30→20:21)
[2017-05-14] MEDS: metFORMIN HCL 500 MG TAB PO SCH ×2 (07:30→17:42)
[2017-05-14] MEDS: DULoxetine HCl DR 20 MG CAP PO SCH (07:31)
[2017-05-14] MEDS: SODIUM CHLORIDE 0.9% FLUSH 5 ML FLUSH IVF SCH ×2 (07:31→20:22)
[2017-05-14 07:36] LABS: HEMATOCRIT 28.7 % (35.0-46.0); MEAN CELL VOLUME 92.8 FL (80.0-100.0); MEAN CORPUSCULAR HEMOGLOBIN 31.1 PG (27.0-34.0); MEAN CORPUSCULAR HGB CONC 33.6 % (32.0-36.0); PLATELET COUNT 226 TH/MM3 (150-450); RED BLOOD COUNT 3.09 MIL/MM3 (4.00-5.30); RED CELL DISTRIBUTION WIDTH 12.7 % (11.6-17.2); REVIEW FLAG FINAL; WHITE BLOOD COUNT 10.9 TH/MM3 (4.0-11.0)
[2017-05-14 07:57] LABS: BICARBONATE 22.1 MEQ/L (21.0-32.0); POTASSIUM 4.3 MEQ/L (3.5-5.1)
--- NOTE | 2017-05-14 08:34 | PD.ORT.PN ---
Subjective Post Op Day #: 1 Subjective Remarks pain tolerable. has not done much with PT. Objective Vitals Vital Signs Date Time Temp Pulse Resp B/P (MAP) Pulse Ox O2 Delivery O2 Flow Rate FiO2 05/14/17 03:00 97.2 69 18 116/56 (76) 96 05/13/17 23:50 96.9 68 17 110/69 (83) 97 05/13/17 22:00 94 Nasal Cannula 2.00 05/13/17 20:35 96.7 66 18 131/70 (90) 95 05/13/17 15:27 96.5 84 18 135/72 (93) 95 05/13/17 15:00 97.4 112 20 114/73 (87) 94 Nasal Cannula 2 05/13/17 14:45 150/83 (105) 94 Simple Mask 2 05/13/17 14:30 113 20 148/90 (109) 94 Simple Mask 2 05/13/17 14:15 103 20 137/81 (99) 94 Simple Mask 2 05/13/17 14:00 104 20 144/82 (102) 99 Simple Mask 2 05/13/17 13:45 113 20 171/81 (111) 97 Simple Mask 2 05/13/17 13:25 97.4 105 20 140/86 (104) 98 Simple Mask 2 05/13/17 09:15 98.1 70 16 139/85 (103) 97 I/O 05/13/17 05/13/17 05/13/17 05/14/17 05/14/17 05/14/17 07:00 15:00 23:00 07:00 15:00 23:00 Intake Total 2000 ml 340 ml 480 ml Output Total 200 ml 200 ml 550 ml Balance 1800 ml 140 ml -70 ml Intake Oral 240 ml 480 ml IV Total 100 ml Other 2000 ml Output Urine Total 100 ml 200 ml 550 ml Estimated Blood Loss 100 ml # Bowel Movements 0 0 Result Diagram: 05/14/17 0635 05/14/17 0635 Imaging Last 24 hours Impressions Knee X-Ray 05/13/17 0938 Signed Impressions: Service Date/Time: Saturday, May 13, 2017 13:57 - CONCLUSION: Total knee arthroplasty in good position. Salazar Villatoro Jr., MD Objective Remarks in bed, nad dressing c/d/i neg rosemarie nvi Assessment & Plan Ortho Post Op Day #: 1 Problem List: Assessment and Plan s/p Revision L TKA wbat daily dressing changes sara d/c planning home with hhc and pt - possibly Wed. rx in chart f/up dr. reyna 2 weeks Lc Benítez May 14, 2017 08:34
--- NOTE | 2017-05-14 08:36 | HHI.DCPOC ---
Discharge Care Plan Diagnosis: (1) Failed total left knee replacement Your Health Problems Are: Difficulty with ADL Goals to Promote Your Health * To prevent worsening of your condition and complications * To maintain your health at the optimal level Directions to Meet Your Goals Take your medications as prescribed Follow your dietary instruction Follow activity as directed Keep your appointments as scheduled Take your immunizations and boosters as scheduled If your symptoms worsen call your PCP, if no PCP go to Urgent Care Center or Emergency Room Smoking is Dangerous to Your Health. Avoid second hand smoke Call the 24-hour hour crisis hotline for domestic abuse at Lc Benítez May 14, 2017 08:36
--- NOTE | 2017-05-14 08:37 | HHI.FF ---
Face to Face Verification Diagnosis: (1) Failed total left knee replacement Physical Therapy Gait training, Safety evaluation, Transfer training, bed to chair Knee: Total knee, Protocol: Left, Full weight bearing Left LE Weight Bearing: WB as tolerated Nursing RN: 3 days/week x 2 weeks Nursing: Talha teaching, Dressing changes Dressing Changes: Daily dressing change I have seen patient Jo-Ann Gutierrez on 05/14/17. My clinical findings support the need for the requested home health care services because: Limited ability to care for self High risk of falls I certify that my clinical findings support that this patient is homebound because: Post-op weakness Unsteady gait/balance Lc Benítez May 14, 2017 08:36
[2017-05-14] MEDS ORDERED: WALKER WHEELS/F1 MIS (08:38)
[2017-05-14] MEDS ORDERED: COMMODE 3-IN-11 MIS (08:38)
[2017-05-14] MEDS ORDERED: CPMMACHINE (08:38)
[2017-05-14] MEDS ORDERED: PNEUMOCOCCAL POLYVALENT INJ 25 MCG/0.5 ML SYR IM ONE (10:00)
[2017-05-14] MEDS: DOCUSATE SODIUM 100 MG CAP PO SCH (20:21)
[2017-05-14] MEDS: MULTIVITAMINS/MINERALS THERAPEUTIC TAB PO SCH (20:22)
[2017-05-15] MEDS: ACETAMINOPHEN/HYDROcodone 325 MG/7.5 MG TAB PO PRN ×5 (00:15→16:36)
[2017-05-15] MEDS: ENOXAPARIN SODIUM 30 MG/0.3 ML SYRINGE SQ SCH (00:15)
[2017-05-15 04:34] VITALS: BP 122/62; PULSE 85; RESP 18; TEMP 97; O2SAT 96
[2017-05-15 07:41] LABS: HEMATOCRIT 26.4 % (35.0-46.0); MEAN CELL VOLUME 92.4 FL (80.0-100.0); MEAN CORPUSCULAR HEMOGLOBIN 31.5 PG (27.0-34.0); MEAN CORPUSCULAR HGB CONC 34.1 % (32.0-36.0); PLATELET COUNT 221 TH/MM3 (150-450); RED BLOOD COUNT 2.86 MIL/MM3 (4.00-5.30); RED CELL DISTRIBUTION WIDTH 13.1 % (11.6-17.2); REVIEW FLAG FINAL; WHITE BLOOD COUNT 7.6 TH/MM3 (4.0-11.0)
--- NOTE | 2017-05-15 07:58 | PD.ORT.PN ---
Subjective Post Op Day #: 2 Subjective Remarks pain tolerable. doing better. Objective Vitals Vital Signs Date Time Temp Pulse Resp B/P (MAP) Pulse Ox O2 Delivery O2 Flow Rate FiO2 05/15/17 04:34 97.0 85 18 122/62 (82) 96 05/14/17 23:35 97.4 72 18 121/56 (77) 98 05/14/17 19:25 96.7 62 18 111/67 (82) 93 05/14/17 16:00 96.9 77 16 105/59 (74) 97 05/14/17 12:00 98.0 67 16 128/66 (86) 96 05/14/17 09:38 95 21 05/14/17 08:00 97.3 59 16 105/61 (76) 96 I/O 05/14/17 05/14/17 05/14/17 05/15/17 05/15/17 05/15/17 07:00 15:00 23:00 07:00 15:00 23:00 Intake Total 480 ml 600 ml 480 ml 1580 ml Output Total 550 ml Balance -70 ml 600 ml 480 ml 1580 ml Intake Oral 480 ml 600 ml 480 ml 480 ml IV Total 1100 ml Output Urine Total 550 ml # Voids 3 7 5 # Bowel Movements 0 0 0 0 Result Diagram: 05/15/17 0656 05/14/17 0635 Imaging Last 24 hours Impressions Knee X-Ray 05/13/17 0938 Signed Impressions: Service Date/Time: Saturday, May 13, 2017 13:57 - CONCLUSION: Total knee arthroplasty in good position. Salazar Villatoro Jr., MD Objective Remarks in bed, nad incision no erythema, no drainage neg homans nvi Assessment & Plan Ortho Post Op Day #: 2 Problem List: Assessment and Plan s/p Revision L TKA wbat daily dressing changes lovenox d/c planning home with hhc and pt - cleared today rx in chart f/up dr. reyna 2 weeks Lc Benítez May 15, 2017 07:58
[2017-05-15 08:00] VITALS: BP 150/70; PULSE 85; RESP 20; TEMP 97.6; O2SAT 96
[2017-05-15 08:10] LABS: BICARBONATE 26.4 MEQ/L (21.0-32.0); POTASSIUM 4.1 MEQ/L (3.5-5.1)
[2017-05-15] MEDS: metFORMIN HCL 500 MG TAB PO SCH (08:19)
[2017-05-15] MEDS: DOCUSATE SODIUM 100 MG CAP PO SCH (08:19)
[2017-05-15] MEDS: SODIUM CHLORIDE 0.9% FLUSH 5 ML FLUSH IVF SCH (08:19)
[2017-05-15] MEDS: LOSARTAN 50 MG TAB PO SCH (08:20)
[2017-05-15] MEDS: DULoxetine HCl DR 20 MG CAP PO SCH (08:20)
[2017-05-15] MEDS: MULTIVITAMINS/MINERALS THERAPEUTIC TAB PO SCH (08:20)
[2017-05-15 11:53] VITALS: O2SAT 96
[2017-05-15 12:00] VITALS: BP 145/72; PULSE 84; RESP 20; TEMP 98.2; O2SAT 96
[2017-05-15] MEDS: SODIUM CHLOR 0.9% 1000 ML INJ 1,000 ML IV SCH (12:00)
[2017-05-15 15:37] VITALS: BP 153/77; PULSE 76; RESP 16; TEMP 96.9; O2SAT 97
[2017-05-15 15:39] VITALS: O2SAT 97
== END 2017-05-15 16:43 | disposition home health service (06) | DRG 468 ==
LOC: HSDI 08:24 → N06B 15:14
PROVIDERS: ADMIT Orthopaedic Surgery Sports Medicine; ATTEND Orthopaedic Surgery Sports Medicine
PROC: 0SRD0J9 Replacement of Left Knee Joint with Synthetic Substitute, Cemented, Open Approach (ICD-10-PCS; 2017-05-13)
PROC: 3E0T3BZ Introduction of Anesthetic Agent into Peripheral Nerves and Plexi, Percutaneous Approach (ICD-10-PCS; 2017-05-13)
PROC: 0SPD0JZ Removal of Synthetic Substitute from Left Knee Joint, Open Approach (ICD-10-PCS; principal; 2017-05-13 10:53)
DX: T84.033A Mechanical loosening of internal left knee prosthetic joint, initial encounter (principal); I10 Essential (primary) hypertension; E11.9 Type 2 diabetes mellitus without complications; Y79.2 Prosthetic and other implants, materials and accessory orthopedic devices associated with adverse incidents; E03.9 Hypothyroidism, unspecified; M17.12 Unilateral primary osteoarthritis, left knee; F32.9 Major depressive disorder, single episode, unspecified; Z79.84 Long term (current) use of oral hypoglycemic drugs; Z98.84 Bariatric surgery status; Z23 Encounter for immunization
CPT/HCPCS: 73560; 76937; 80048; 82948; 85027; 86850; 86900; 86901; 90732; 94150; C1776; J0131; J0690; J0735; J1100; J1170; J1580; J1650; J1885; J2175; J2270; J2405; J2795; J3010; J3370; J7030; J7050; J7120; L1830

== ENCOUNTER 2017-05-29 06:02 | Emergency (ER) | payer MEDICARE, OTHER ==
[~2017-05-29] VITALS: Ht 165.1 cm; Wt 100.0 kg
[~2017-05-29 06:02] MED LIST changes: +COMMODE 3-IN-11 MIS; +CPMMACHINE; +ENOX30P SQ; +WALKER WHEELS/F1 MIS
[2017-05-29 06:04] VITALS: BP 146/93; PULSE 99; RESP 18; TEMP 98.9; O2SAT 97
--- NOTE | 2017-05-29 06:38 | PD ---
HPI Chief Complaint: Pain: Acute or Chronic Time Seen by Provider: 06:20 Travel History International Travel<30 days: No Contact w/Intl Traveler<30days: No Traveled to known affect area: No History of Present Illness HPI The patient is a 61 year old female who presents to the [facility] emergency department with a history of left knee pain and swelling that began 2 days ago. She is postop status post left total knee arthroplasty revision by Dr. Wallace on May 13. She has her postop appointment is scheduled for tomorrow. She reports that she tried to follow-up early by showing up at the office, however she was unable to see the doctor. She reports that she is out of her pain medication. She reports that Tylenol has not been helping. She denies having any fevers. She reports the pain extends from the knee all the way down the left side of her leg to the ankle and is also in the calf. She reports that she has been taking Lovenox as prescribed for DVT prophylaxis. She reports that she has had chest pain in the left side of her chest intermittently associated with the knee pain when it is at its peak. She denies having any chest pain currently. She denies having any shortness of breath. Review of systems, she reports that she has had some mild congestion and a dry cough. She denies having any known fevers, neck pain,abdominal pain, vomiting, diarrhea, urinary symptoms, or neurologic symptoms. [facility] Past Medical History Narrative Medical The patient's past medical history is significant for chronic back pain. The patient reports that prior to having surgery she was on tramadol for her back pain, prescribed by her primary care physician, however she is currently out of this as well. The patient otherwise has a past medical history of diabetes mellitus, hypertension, history of hallucinations and disorientation postanesthesia. The patient has a history of gastric bypass for obesity. The patient has a history of hypothyroid disorder, depression. PCP: Dr. Michael. Hx Anticoagulant Therapy: No Arthritis: Yes Asthma: Yes Autoimmune Disease: No Blood Disorders: No Bipolar Disorder: No Anxiety: Yes Depression: No Heart Rhythm Problems: Yes Cancer: No Cardiac Catheterization: Yes Cardiovascular Problems: No High Cholesterol: No Chemotherapy: No Chest Pain: Yes Congestive Heart Failure: Yes COPD: No Cerebrovascular Accident: No Diabetes: Yes (TYPE II) Patient Takes Glucophage: No Diminished Hearing: No Endocrine: No Gastrointestinal Disorders: Yes (GERD, GALLBLADDER) GERD: Yes Glaucoma: No Genitourinary: No Headaches: Yes Hepatitis: No Hiatal Hernia: Yes (REPAIRED) Hypertension: Yes Immune Disorder: No Implanted Vascular Access Dvce: Yes Kidney Stones: No Musculoskeletal: Yes (LEFT KNEE, RIGHT KNEE REPLACEMENT) Neurologic: Yes Psychiatric: Yes (CLAUSTROPHOBIC) Reproductive: No Respiratory: No Immunizations Current: Yes Migraines: No Myocardial Infarction: No Radiation Therapy: No Renal Failure: No Seizures: No Sickle Cell Disease: No Sleep Apnea: Yes (uses c- pap) Thyroid Disease: Yes (HYPO) Ulcer: Yes Influenza Vaccination: Yes PNEUMOCCOCAL Vaccine (Year): 1 Menopausal: Yes Past Surgical History Narrative Surgical The patient's past surgical history is significant for a left knee arthroplasty in 2010 that reportedly failed, arthroplasty of the right knee and 2014, history of gastric bypass, cataract surgery, hysterectomy, low back surgery, cholecystectomy. Abdominal Surgery: Yes (gastric bypass, hiatal hernia repair, GALLBLADDER, ADHESIOLYSIS) AICD: No Appendectomy: No Arteriovenous Shunt: No Body Medical Devices: LUMBAR HARDWARE Cardiac Surgery: No Cholecystectomy: Yes Coronary Artery Bypass Graft: No Ear Surgery: No Endocrine Surgery: Yes (TORRES CARPAL TUNNEL SURGERY 02/2014) Eye Surgery: Yes (bilat cataract sx ) Genitourinary Surgery: No Gynecologic Surgery: Yes (total abdominal hysterectomy ) Hysterectomy: Yes Insulin Pump: No Joint Replacement: Yes (BILATERAL KNEES) Neurologic Surgery: Yes (LUMBAR FUSION) Oral Surgery: No Pacemaker: No Thoracic Surgery: No Other Surgery: Yes (gastric bypass) Social History Alcohol Use: No Tobacco Use: No Substance Use: No Allergies-Medications (Allergen,Severity, Reaction): Coded Allergies: Fish Containing Products (Verified Allergy, Severe, HIVES , 05/29/17) PT STATES INTERMEDIATE REACTION PER PT HIVES AND TONGUE SWELLING shellfish derived (Verified Allergy, Severe, HIVES, TONGUE SWELLS, ) PT STATES AN INTERMEDIATE REACTION diclofenac (Verified Adverse Reaction, Severe, BLEEDING, 05/29/17) etodolac (Verified Adverse Reaction, Severe, BLEEDING, 05/29/17) flurbiprofen (Verified Adverse Reaction, Severe, BLEEDING, 05/29/17) ibuprofen (Verified Adverse Reaction, Severe, BLEEDING, 05/29/17) indomethacin (Verified Adverse Reaction, Severe, BLEEDING, 05/29/17) ketoprofen (Verified Adverse Reaction, Severe, BLEEDING, 05/29/17) ketorolac (Verified Adverse Reaction, Severe, BLEEDING, 05/29/17) naproxen (Verified Adverse Reaction, Severe, BLEEDING, 05/29/17) oxaprozin (Verified Adverse Reaction, Severe, BLEEDING, 05/29/17) aspirin (Verified Adverse Reaction, Intermediate, Bleeding, 05/29/17) Reported Meds & Prescriptions Reported Meds & Active Scripts Active Commode 3-in-1 (Device) 1 Mis Mis Ea .ROUTE DIRECTED Walker with Front Wheels (Device) 1 Mis Mis Ea .ROUTE DIRECTED CPM-Continuous Passive Motion Machine 1 Ea Device Ea .ROUTE DIRECTED Lovenox Inj (Enoxaparin Sodium) 30 Mg/0.3 Ml Syr 30 Mg SQ DAILY Percocet (Oxycodone-Acetaminophen) 5-325 mg Tab 1-2 Tab PO Q4H PRN Reported Acidophilus (Probiotic Product) 1 Cap Cap 1 Cap PO TID Ventolin Hfa 18 GM Inh (Albuterol Sulfate) 90 Mcg/Act Aer 2 Puff INH Q4H PRN Claritin (Loratadine) 10 Mg Cap 10 Mg PO HS Cymbalta DR (Duloxetine HCl) 20 Mg Capdr 20 Mg PO DAILY Diazepam 5 Mg Tab 5 Mg PO Q8HR PRN Losartan (Losartan Potassium) 50 Mg Tab 50 Mg PO BID Ultram (Tramadol HCl) 50 Mg Tab 50 Mg PO Q6H PRN Metformin (Metformin HCl) 500 Mg Tab 500 Mg PO BIDPC With meals Review of Systems Except as stated in HPI: all other systems reviewed are Neg General / Constitutional: No: Fever Eyes: No: Visual changes HENT: Positive: Congestion, No: Headaches Cardiovascular: Positive: Chest Pain or Discomfort, No: Dyspnea on exertion Respiratory: Positive: Cough, No: Shortness of Breath Gastrointestinal: No: Nausea, Vomiting, Diarrhea, Abdominal Pain Genitourinary: No: Dysuria Musculoskeletal: Positive: Myalgias, Arthralgias, Limited ROM, Edema, Pain Skin: No Rash Neurologic: No: Weakness, Focal Abnormalities, Change in Mentation, Slurred Speech, Sensory Disturbance Psychiatric: No: Depression Endocrine: No: Polydipsia Hematologic/Lymphatic: No: Easy Bruising Physical Exam Narrative General: The patient is a well-developed well-nourished female in no acute distress. Head and Neck exam: Head is normocephalic atraumatic. Eyes: EOMI, pupils are equal round and reactive to light. Nose: Midline septum with pink mucous membranes Mouth: Dentition unremarkable. Moist mucus membranes. Posterior oropharynx is not erythematous. No tonsillar hypertrophy. Uvula midline. Airway patent. Neck: No palpable lymphadenopathy. No nuchal rigidity. No thyromegaly. Cardiovascular: Regular rate and rhythm without murmurs, gallops, or rubs. Lungs: Clear to auscultation bilaterally. No wheezes, rhonchi, or rales. Abdomen: Soft, without tenderness to palpation in all 4 quadrants of the abdomen. No guarding, rebound, or rigidity. No tenderness on palpation of McBurney's point. Normal bowel sounds are audible. Extremities: No clubbing or cyanosis. The patient has trace pedal edema. The area of interest is the right knee. The patient reports tenderness on palpation along the lateral aspects of the knee along the lateral joint line, lateral calf. There is no significant erythema. There is no drainage from her postoperative wound. The patient has decreased range of motion of her knee. The patient has left-sided calf tenderness. The patient has a negative Homans sign. No palpable cords. 2+ pulses in all 4 extremities. Back: No spinous process tenderness to palpation. No costovertebral angle tenderness to palpation. Neurologic Exam: Grossly nonfocal. Skin Exam: No rash noted. Intact skin that is warm and dry. Data Data Last Documented VS Vital Signs Date Time Temp Pulse Resp B/P (MAP) Pulse Ox O2 Delivery O2 Flow Rate FiO2 05/29/17 06:04 98.9 99 18 146/93 (110) 97 Room Air Orders Orders Us Leg Venous Doppler (05/29/17 06:40) Electrocardiogram (05/29/17 06:40) Complete Blood Count With Diff (05/29/17 06:40) Comprehensive Metabolic Panel (05/29/17 06:40) Creatine Kinase (Cpk) (05/29/17 06:40) Ckmb (Isoenzyme) Profile (05/29/17 06:40) Troponin I (05/29/17 06:40) B-Type Natriuretic Peptide (05/29/17 06:40) Prothrombin Time / Inr (Pt) (05/29/17 06:40) Act Partial Throm Time (Ptt) (05/29/17 06:40) C-Reactive Protein (Crp) (05/29/17 06:40) Urinalysis - C+S If Indicated (05/29/17 06:40) Magnesium (Mg) (05/29/17 06:40) Chest, Single Ap (05/29/17 06:40) Iv Access Insert/Monitor (05/29/17 06:40) Ecg Monitoring (05/29/17 06:40) Oximetry (05/29/17 06:40) MDM Medical Decision Making Medical Screen Exam Complete: Yes Emergency Medical Condition: Yes Medical Record Reviewed: Yes Differential Diagnosis Postop infection, versus DVT, versus recurrent postop pain as she is out of her pain medication. Additionally, regarding the patient's chest pain, she does report having a history of congestive heart failure. She is unsure whether she is ever had cardiac stenting done although she recalls having a cardiac catheterization. The patient will have cardiac enzymes sent. Narrative Course During the course of the patients emergency department visit, the patients history, examination, and differential diagnosis were reviewed with the patient. The patient was placed on a venereal disease control head with oximetry and frequent blood pressure monitoring. The patient had IV access obtained and blood work sent for analysis. The patient will have an ECG done. The patient was initially provided Percocet for pain as she has multiple medication allergies and a history of disorientation and altered mentation with certain narcotic medications. She has tolerated Percocet in the past. An ECG revealed a sinus tachycardia rate of 101, nonspecific T-wave abnormalities, T waves are inverted in V1 and QRS duration is 88 ms, QTC 404 ms. The patients laboratory studies and imaging studies are pending at the conclusion of my shift. The patient's case will be checked out to the oncoming emergency physician to disposition the patient based on the conclusion of her workup. An ultrasound has been ordered of the left lower extremity to rule out DVT. The patient does however report that she has been compliant with her Lovenox administration. Diagnosis Primary Impression: Postoperative pain Additional Impression: Left knee pain Qualified Codes: M25.562 - Pain in left knee Olivia Kirby MD May 29, 2017 06:38
--- NOTE | 2017-05-29 06:58 | RADRPT ---
EXAM DATE/TIME: 05/29/2017 06:52 [facility] COMPARISON: CHEST SINGLE AP, January 02, 2017, 4:46. INDICATIONS : Shortness of breath, cough. MEDICAL HISTORY : None. SURGICAL HISTORY : None. ENCOUNTER: Initial ACUITY: 1 day PAIN SCORE: 0/10 LOCATION: Bilateral chest FINDINGS: A single view of the chest demonstrates the lungs to be symmetrically aerated without evidence of mas s, infiltrate or effusion. The cardiomediastinal contours are unremarkable. Osseous structures are intact. CONCLUSION: No evidence of acute cardiopulmonary disease. Momo Rondon MD on May 29, 2017 at 6:57 Board Certified Radiologist. This report was verified electronically.
[2017-05-29] MEDS ORDERED: oxyCODONE/ACETAMINOPHEN 5 MG/325 MG TAB PO ONE (07:00)
--- NOTE | 2017-05-29 07:00 | PD ---
Physical Exam Date Seen by Provider: May 29, 2017 Time Seen by Provider: 06:57 Narrative The patient is a 61-year-old female was initially evaluated by the previous physician, Dr. Kirby. Please refer to the initial history, physical, diagnostic evaluation, treatment modality plan. The patient was signed out at 7 AM with ultrasound of the lower extremity pending as well as laboratory evaluation pending. Data Data Last Documented VS Vital Signs Date Time Temp Pulse Resp B/P (MAP) Pulse Ox O2 Delivery O2 Flow Rate FiO2 05/29/17 06:04 98.9 99 18 146/93 (110) 97 Room Air Orders Orders Us Leg Venous Doppler (05/29/17 06:40) Electrocardiogram (05/29/17 06:40) Complete Blood Count With Diff (05/29/17 06:40) Comprehensive Metabolic Panel (05/29/17 06:40) Creatine Kinase (Cpk) (05/29/17 06:40) Ckmb (Isoenzyme) Profile (05/29/17 06:40) Troponin I (05/29/17 06:40) B-Type Natriuretic Peptide (05/29/17 06:40) Prothrombin Time / Inr (Pt) (05/29/17 06:40) Act Partial Throm Time (Ptt) (05/29/17 06:40) C-Reactive Protein (Crp) (05/29/17 06:40) Urinalysis - C+S If Indicated (05/29/17 06:40) Magnesium (Mg) (05/29/17 06:40) Chest, Single Ap (05/29/17 06:40) Iv Access Insert/Monitor (05/29/17 06:40) Ecg Monitoring (05/29/17 06:40) Oximetry (05/29/17 06:40) Oxycodone-Acetamin 5-325 Mg (Percocet (05/29/17 07:00) CKMB (05/29/17 07:05) CKMB% (05/29/17 07:05) Labs Laboratory Tests Test 05/29/17 07:05 White Blood Count 7.1 TH/MM3 Red Blood Count 3.68 MIL/MM3 Hemoglobin 11.6 GM/DL Hematocrit 34.2 % Mean Corpuscular Volume 92.9 FL Mean Corpuscular Hemoglobin 31.4 PG Mean Corpuscular Hemoglobin Concent 33.8 % Red Cell Distribution Width 13.4 % Platelet Count 497 TH/MM3 Mean Platelet Volume 7.8 FL Neutrophils (%) (Auto) 61.5 % Lymphocytes (%) (Auto) 29.0 % Monocytes (%) (Auto) 7.1 % Eosinophils (%) (Auto) 1.4 % Basophils (%) (Auto) 1.0 % Neutrophils # (Auto) 4.4 TH/MM3 Lymphocytes # (Auto) 2.0 TH/MM3 Monocytes # (Auto) 0.5 TH/MM3 Eosinophils # (Auto) 0.1 TH/MM3 Basophils # (Auto) 0.1 TH/MM3 CBC Comment DIFF FINAL Differential Comment Prothrombin Time 11.1 SEC Prothromb Time International Ratio 1.1 RATIO Activated Partial Thromboplast Time 27.7 SEC Blood Urea Nitrogen 9 MG/DL Creatinine 0.88 MG/DL Random Glucose 108 MG/DL Total Protein 9.0 GM/DL Albumin 3.7 GM/DL Calcium Level 9.1 MG/DL Magnesium Level 1.9 MG/DL Alkaline Phosphatase 163 U/L Aspartate Amino Transf (AST/SGOT) 21 U/L Alanine Aminotransferase (ALT/SGPT) 24 U/L Total Bilirubin 0.4 MG/DL Sodium Level 138 MEQ/L Potassium Level 3.9 MEQ/L Chloride Level 106 MEQ/L Carbon Dioxide Level 24.5 MEQ/L Anion Gap 8 MEQ/L Estimat Glomerular Filtration Rate 79 ML/MIN Total Creatine Kinase 136 U/L Creatine Kinase MB LESS THAN 0.5 NG/ML Troponin I LESS THAN 0.02 NG/ML C-Reactive Protein 0.45 MG/DL B-Type Natriuretic Peptide 4 PG/ML [facility] Medical Record Reviewed: Yes Supervised Visit with RENETTA: No Interpretation(s) Laboratory Tests Test 05/29/17 07:05 White Blood Count 7.1 TH/MM3 Red Blood Count 3.68 MIL/MM3 Hemoglobin 11.6 GM/DL Hematocrit 34.2 % Mean Corpuscular Volume 92.9 FL Mean Corpuscular Hemoglobin 31.4 PG Mean Corpuscular Hemoglobin Concent 33.8 % Red Cell Distribution Width 13.4 % Platelet Count 497 TH/MM3 Mean Platelet Volume 7.8 FL Neutrophils (%) (Auto) 61.5 % Lymphocytes (%) (Auto) 29.0 % Monocytes (%) (Auto) 7.1 % Eosinophils (%) (Auto) 1.4 % Basophils (%) (Auto) 1.0 % Neutrophils # (Auto) 4.4 TH/MM3 Lymphocytes # (Auto) 2.0 TH/MM3 Monocytes # (Auto) 0.5 TH/MM3 Eosinophils # (Auto) 0.1 TH/MM3 Basophils # (Auto) 0.1 TH/MM3 CBC Comment DIFF FINAL Differential Comment Prothrombin Time 11.1 SEC Prothromb Time International Ratio 1.1 RATIO Activated Partial Thromboplast Time 27.7 SEC Blood Urea Nitrogen 9 MG/DL Creatinine 0.88 MG/DL Random Glucose 108 MG/DL Total Protein 9.0 GM/DL Albumin 3.7 GM/DL Calcium Level 9.1 MG/DL Magnesium Level 1.9 MG/DL Alkaline Phosphatase 163 U/L Aspartate Amino Transf (AST/SGOT) 21 U/L Alanine Aminotransferase (ALT/SGPT) 24 U/L Total Bilirubin 0.4 MG/DL Sodium Level 138 MEQ/L Potassium Level 3.9 MEQ/L Chloride Level 106 MEQ/L Carbon Dioxide Level 24.5 MEQ/L Anion Gap 8 MEQ/L Estimat Glomerular Filtration Rate 79 ML/MIN Total Creatine Kinase 136 U/L Creatine Kinase MB LESS THAN 0.5 NG/ML Troponin I LESS THAN 0.02 NG/ML C-Reactive Protein 0.45 MG/DL B-Type Natriuretic Peptide 4 PG/ML Ultrasound of the leg reveals no venous thrombosis of the left lower extremity. Differential Diagnosis Differential diagnosis includes postoperative pain, fracture, DVT, hematoma, joint effusion. Narrative Course The patient is a 61 year-old female was initially seen by the previous physician , Dr. Kirby. Please refer to the initial history, physical, diagnostic evaluation, and treatment modality plan. The patient was signed out at 7 AM with ultrasound and laboratory evaluation pending. The patient's surgery was performed at the end of April by Dr. Lc Wallace. Ultrasound the left lower extremity is negative for DVT. Chest x-rays unremarkable. Laboratory evaluation including CPK and troponin are negative. A call was placed to the patient's orthopedic surgeon at 8:18 AM. I discussed the patient with Dr. Wallace at 8:28 AM who will see the patient in the office tomorrow as scheduled. Patient Instructions: General Instructions Additional Instruction: Please provide a patient a copy of her lab results, chest x-ray results, and ultrasound results at discharge. Pain medication as directed. Follow-up with Dr. Wallace tomorrow as scheduled. Return if symptoms worsen or progress. Med/Other Pt SpecificInfo: Prescription(s) given Scripts Hydrocodone-Acetaminophen ([place]) 10-325 Mg Tab 1 TAB PO Q6H Y for PAIN, #10 TAB 0 Refills Prov: Miquel Howell MD 05/29/17 Disposition: 01 DISCHARGE HOME Condition: Stable Miquel Howell MD May 29, 2017 07:00
[2017-05-29 07:24] LABS: AUTOMATED NEUTROPHIL # 4.4 TH/MM3 (1.8-7.7); BASOPHIL # 0.1 TH/MM3 (0-0.2); EOSINOPHIL # 0.1 TH/MM3 (0-0.4); EOSINOPHIL % 1.4 % (0.0-4.0); HEMATOCRIT 34.2 % (35.0-46.0); HEMO FLAGS DIFF FINAL; MEAN CELL VOLUME 92.9 FL (80.0-100.0); MEAN CORPUSCULAR HEMOGLOBIN 31.4 PG (27.0-34.0); MEAN CORPUSCULAR HGB CONC 33.8 % (32.0-36.0); MONO % 7.1 % (0.0-8.0); NEUT % 61.5 % (16.0-70.0); PLATELET COUNT 497 TH/MM3 (150-450); RED BLOOD COUNT 3.68 MIL/MM3 (4.00-5.30); RED CELL DISTRIBUTION WIDTH 13.4 % (11.6-17.2); WHITE BLOOD COUNT 7.1 TH/MM3 (4.0-11.0)
[2017-05-29 07:37] LABS: APTT (PATIENT) 27.7 SEC (24.3-30.1); INTERNATIONAL NORMALIZED RATIO 1.1 RATIO; PROTHROMBIN TIME - PATIENT 11.1 SEC (9.8-11.6)
[2017-05-29 07:50] LABS: ANION GAP 8 MEQ/L (5-15); AST (GOT) 21 U/L (15-37); BICARBONATE 24.5 MEQ/L (21.0-32.0); BLOOD UREA NITROGEN 9 MG/DL (7-18); CHLORIDE 106 MEQ/L (98-107); GLOMERULAR FILTRATION RATE 79 ML/MIN (>89); MAGNESIUM 1.9 MG/DL (1.5-2.5); POTASSIUM 3.9 MEQ/L (3.5-5.1); SODIUM (NA) 138 MEQ/L (136-145)
[2017-05-29 07:51] LABS: ALT (GPT) 24 U/L (10-53)
[2017-05-29 07:53] LABS: ALKALINE PHOSPHATASE 163 U/L (45-117); CREATINE KINASE 136 U/L (26-192); TOTAL BILIRUBIN ADULT 0.4 MG/DL (0.2-1.0)
[2017-05-29 08:05] LABS: CKMB LESS THAN 0.5 NG/ML (0.5-3.6)
--- NOTE | 2017-05-29 08:16 | RADRPT ---
EXAM DATE/TIME: 05/29/2017 07:34 [facility] COMPARISON: No previous studies available for comparison. INDICATIONS : Left leg pain. MEDICAL HISTORY : Gastroesophageal reflux disease. Myocardial infarction. Hypothyroidism. CHF. Hypertension. Ulcer. Hiatal hernia. Arthritis. Diabetes, type 2. SURGICAL HISTORY : Cholecystectomy. Hysterectomy. Lumbar fusion. Cardiac cath. Bialteral knee surgery. ENCOUNTER: Subsequent ACUITY: 2 weeks PAIN SCORE: 7/10 LOCATION: Left leg. TECHNIQUE: Venous ultrasound of the leg was performed from the inguinal ligament to the proximal calf. Real-hortencia e, color Doppler and spectral tracing, compression and augmentation techniques were used. FINDINGS: There is normal compressibility of the deep venous system from the inguinal region to the proximal ca lf. No echogenic clot is seen in the lumen of the common femoral, femoral, popliteal, and posterior tibial veins. There is a normal response of the venous system to proximal and distal augmentation an d respiration. CONCLUSION: No venous thrombosis of the left lower extremity. Momo Rondon MD on May 29, 2017 at 8:14 Board Certified Radiologist. This report was verified electronically.
[2017-05-29] MEDS ORDERED: HYDR-3366 PO (08:34)
--- NOTE | 2017-05-29 15:01 | EKG ---
Date Performed: 05/29/2017 Time Performed: 06:54:18 PTAGE: 61 years EKG: SINUS TACHYCARDIA NONSPECIFIC T-WAVE ABNORMALITY ABNORMAL RHYTHM ECG NO PREVIOUS TRACING DOCTOR: Timur Coulter Interpretating Date/Time 05/29/2017 15:00:37
== END 2017-05-29 09:08 | disposition home or self-care (01) ==
LOC: NEPC 06:02
DX: M25.562 Pain in left knee (principal); G89.18 Other acute postprocedural pain; R00.0 Tachycardia, unspecified; R07.9 Chest pain, unspecified; R94.31 Abnormal electrocardiogram [ECG] [EKG]; I11.0 Hypertensive heart disease with heart failure; I50.9 Heart failure, unspecified; E11.9 Type 2 diabetes mellitus without complications; E03.9 Hypothyroidism, unspecified
CPT/HCPCS: 71010; 80053; 82550; 82552; 83735; 83880; 84484; 85025; 85610; 85730; 86140; 93005; 93971; 99285

== ENCOUNTER 2017-06-05 18:07 | Emergency (ER) | payer MEDICARE, OTHER ==
[~2017-06-05 18:07] MED LIST changes: +HYDR-3366 PO
[2017-06-05 18:09] VITALS: BP 192/106; PULSE 116; RESP 30; TEMP 98.4; O2SAT 98
[2017-06-05] MEDS ORDERED: LORazepam 2 MG/ML VIAL IV PUSH ONE (18:45)
[2017-06-05 19:05] VITALS: BP 135/82; PULSE 95; RESP 18; O2SAT 100
--- NOTE | 2017-06-05 19:29 | PD ---
HPI Chief Complaint: Anxiety Time Seen by Provider: 18:40 Travel History International Travel<30 days: No Contact w/Intl Traveler<30days: No Traveled to known affect area: No History of Present Illness HPI 61-year-old black female presents to emergency department accompanied by family for what they say is anxiety. Patient is approximately 2 weeks status post left knee arthroplasty. She was seen by Dr. Wallace her orthopedist last week. Patient's been having persistent pain in her left knee. She states that she's had warmth in her knee. She has had radiation of pain up into her groin and down her leg. She states that she feels pain behind the knee and up into the groin. Dr. Wallace allegedly is aware of her symptoms. She states that she developed anxiety because of overwhelming pain. Patient admits to anxiety, shortness of breath, and increased heart rate at times. Patient denies any documented fever or chills. Patient denies any chest pain. No nausea vomiting. No abdominal pain or urinary symptoms. Pain is moderate but can be severe at times. Worse with bending and movement. PFSH Past Medical History Narrative Medical chronic back pain, diabetes mellitus, hypertension, history of hallucinations and disorientation postanesthesia, gastric bypass, hypothyroid disorder, depression. Hx Anticoagulant Therapy: No Arthritis: Yes Asthma: Yes Autoimmune Disease: No Blood Disorders: No Bipolar Disorder: No Anxiety: Yes Depression: No Heart Rhythm Problems: Yes Cancer: No Cardiac Catheterization: Yes Cardiovascular Problems: No High Cholesterol: No Chemotherapy: No Chest Pain: Yes Congestive Heart Failure: Yes COPD: No Cerebrovascular Accident: No Diabetes: Yes (TYPE II) Diminished Hearing: No Endocrine: No Gastrointestinal Disorders: Yes (GERD, GALLBLADDER) GERD: Yes Glaucoma: No Genitourinary: No Headaches: Yes Hepatitis: No Hiatal Hernia: Yes (REPAIRED) Hypertension: Yes Immune Disorder: No Implanted Vascular Access Dvce: Yes Kidney Stones: No Musculoskeletal: Yes (LEFT KNEE, RIGHT KNEE REPLACEMENT) Neurologic: Yes Psychiatric: Yes (CLAUSTROPHOBIC) Reproductive: No Respiratory: No Immunizations Current: Yes Migraines: No Myocardial Infarction: No Radiation Therapy: No Renal Failure: No Seizures: No Sickle Cell Disease: No Sleep Apnea: Yes (uses c- pap) Thyroid Disease: Yes (HYPO) Ulcer: Yes Tetanus Vaccination: < 5 Years PNEUMOCCOCAL Vaccine (Year): 1 Menopausal: Yes Past Surgical History Abdominal Surgery: Yes (gastric bypass, hiatal hernia repair, GALLBLADDER, ADHESIOLYSIS) AICD: No Appendectomy: No Arteriovenous Shunt: No Body Medical Devices: LUMBAR HARDWARE Cardiac Surgery: No Cholecystectomy: Yes Coronary Artery Bypass Graft: No Ear Surgery: No Endocrine Surgery: Yes (TORRES CARPAL TUNNEL SURGERY 02/2014) Eye Surgery: Yes (bilat cataract sx ) Genitourinary Surgery: No Gynecologic Surgery: Yes (total abdominal hysterectomy ) Hysterectomy: Yes Insulin Pump: No Joint Replacement: Yes (BILATERAL KNEES) Neurologic Surgery: Yes (LUMBAR FUSION) Oral Surgery: No Pacemaker: No Thoracic Surgery: No Other Surgery: Yes (gastric bypass) Social History Alcohol Use: No Tobacco Use: No Substance Use: No Allergies-Medications (Allergen,Severity, Reaction): Coded Allergies: Fish Containing Products (Verified Allergy, Severe, HIVES , 05/29/17) PT STATES INTERMEDIATE REACTION PER PT HIVES AND TONGUE SWELLING shellfish derived (Verified Allergy, Severe, HIVES, TONGUE SWELLS, ) PT STATES AN INTERMEDIATE REACTION diclofenac (Verified Adverse Reaction, Severe, BLEEDING, 05/29/17) etodolac (Verified Adverse Reaction, Severe, BLEEDING, 05/29/17) flurbiprofen (Verified Adverse Reaction, Severe, BLEEDING, 05/29/17) ibuprofen (Verified Adverse Reaction, Severe, BLEEDING, 05/29/17) indomethacin (Verified Adverse Reaction, Severe, BLEEDING, 05/29/17) ketoprofen (Verified Adverse Reaction, Severe, BLEEDING, 05/29/17) ketorolac (Verified Adverse Reaction, Severe, BLEEDING, 05/29/17) naproxen (Verified Adverse Reaction, Severe, BLEEDING, 05/29/17) oxaprozin (Verified Adverse Reaction, Severe, BLEEDING, 05/29/17) aspirin (Verified Adverse Reaction, Intermediate, Bleeding, 05/29/17) Reported Meds & Prescriptions Reported Meds & Active Scripts Active [place] (Hydrocodone-Acetaminophen) 10-325 Mg Tab 1 Tab PO Q6H PRN Commode 3-in-1 (Device) 1 Mis Mis Ea .ROUTE DIRECTED Walker with Front Wheels (Device) 1 Mis Mis Ea .ROUTE DIRECTED CPM-Continuous Passive Motion Machine 1 Ea Device Ea .ROUTE DIRECTED Lovenox Inj (Enoxaparin Sodium) 30 Mg/0.3 Ml Syr 30 Mg SQ DAILY Percocet (Oxycodone-Acetaminophen) 5-325 mg Tab 1-2 Tab PO Q4H PRN Reported Acidophilus (Probiotic Product) 1 Cap Cap 1 Cap PO TID Ventolin Hfa 18 GM Inh (Albuterol Sulfate) 90 Mcg/Act Aer 2 Puff INH Q4H PRN Claritin (Loratadine) 10 Mg Cap 10 Mg PO HS Cymbalta DR (Duloxetine HCl) 20 Mg Capdr 20 Mg PO DAILY Diazepam 5 Mg Tab 5 Mg PO Q8HR PRN Losartan (Losartan Potassium) 50 Mg Tab 50 Mg PO BID Ultram (Tramadol HCl) 50 Mg Tab 50 Mg PO Q6H PRN Metformin (Metformin HCl) 500 Mg Tab 500 Mg PO BIDPC With meals Review of Systems General / Constitutional: No: Fever Eyes: No: Visual changes HENT: No: Headaches, Sore Throat Cardiovascular: Positive: Tachycardia, Dyspnea on exertion, No: Chest Pain or Discomfort, Diaphoresis, Syncope Respiratory: Positive: Shortness of Breath, No: Wheezing Gastrointestinal: No: Nausea, Vomiting, Abdominal Pain Genitourinary: No: Dysuria, Hematuria Musculoskeletal: Positive: Arthralgias, Limited ROM, Edema (left knee postoperatively), Pain Skin: Positive Other (warmth of the left knee.), No Rash Neurologic: No: Weakness Psychiatric: Positive: Anxiety, No: Depression Endocrine: No: Polydipsia Hematologic/Lymphatic: No: Easy Bruising Physical Exam Narrative GENERAL: Well-developed, well-nourished in no apparent distress. Nontoxic appearing. Patient is anxious. She is accompanied by family members. They've requested something for her anxiety. HEAD: Normocephalic, atraumatic. EYES: Pupils equal round and reactive. Extraocular motions intact. No scleral icterus. No injection or drainage. ENT: Nose clear. Throat without erythema, tonsillar hypertrophy or exudate. Uvula midline. Airway patent. NECK: Trachea midline. Supple, nontender, moves head freely. No central bony tenderness or spasm. CARDIOVASCULAR: Regular rate and rhythm without murmurs, gallops, or rubs. RESPIRATORY: Clear to auscultation. Breath sounds equal bilaterally. No wheezes , rales, or rhonchi. GASTROINTESTINAL: Abdomen soft, non-tender, nondistended. No hepato-splenomegaly , or palpable masses. No guarding. EXTREMITIES: No clubbing, cyanosis. Patient has +1 bilateral pedal edema. She has surgical scar to the right knee which is well-healed prior knee surgery. She has a healing surgical incision on her left knee from her recent knee replacement. The knee is warm to touch. There is no erythema. She has decreased range of motion due to pain. She has intact sensation with good distal pulses bilaterally. I see no cords. There is no Homans sign. Patient does complain of pain and swelling kind the left knee as well as the inner left thigh. BACK: Nontender without deformity. No flank tenderness. NEUROLOGICAL: Awake, alert and oriented x 3 .Cranial nerves grossly intact. Motor and sensory grossly within normal limits. Normal speech. Data Data Last Documented VS Vital Signs Date Time Temp Pulse Resp B/P (MAP) Pulse Ox O2 Delivery O2 Flow Rate FiO2 06/05/17 21:00 16 06/05/17 20:50 82 159/83 (108) 100 Room Air 06/05/17 18:09 98.4 Orders Orders Electrocardiogram (06/05/17 18:40) Complete Blood Count With Diff (06/05/17 18:40) Comprehensive Metabolic Panel (06/05/17 18:40) Troponin I (06/05/17 18:40) Prothrombin Time / Inr (Pt) (06/05/17 18:40) Act Partial Throm Time (Ptt) (06/05/17 18:40) D-Dimer (06/05/17 18:40) Thyroid Stimulating Hormone (06/05/17 18:40) Chest, Single Ap (06/05/17 18:40) Iv Access Insert/Monitor (06/05/17 18:40) Ecg Monitoring (06/05/17 18:40) Oximetry (06/05/17 18:40) Lorazepam Inj (Ativan Inj) (06/05/17 18:45) Us Leg Venous Doppler (06/05/17 19:15) Ondansetron Inj (Zofran Inj) (06/05/17 21:00) Fentanyl Inj (Fentanyl Inj) (06/05/17 21:00) Ed Discharge Order (06/05/17 22:26) Labs Laboratory Tests Test 06/05/17 19:54 White Blood Count 4.9 TH/MM3 Red Blood Count 3.63 MIL/MM3 Hemoglobin 11.1 GM/DL Hematocrit 33.6 % Mean Corpuscular Volume 92.6 FL Mean Corpuscular Hemoglobin 30.5 PG Mean Corpuscular Hemoglobin Concent 32.9 % Red Cell Distribution Width 13.2 % Platelet Count 365 TH/MM3 Mean Platelet Volume 8.7 FL Neutrophils (%) (Auto) 48.5 % Lymphocytes (%) (Auto) 40.6 % Monocytes (%) (Auto) 6.1 % Eosinophils (%) (Auto) 3.9 % Basophils (%) (Auto) 0.9 % Neutrophils # (Auto) 2.4 TH/MM3 Lymphocytes # (Auto) 2.0 TH/MM3 Monocytes # (Auto) 0.3 TH/MM3 Eosinophils # (Auto) 0.2 TH/MM3 Basophils # (Auto) 0.0 TH/MM3 CBC Comment DIFF FINAL Differential Comment Prothrombin Time 10.8 SEC Prothromb Time International Ratio 1.1 RATIO Activated Partial Thromboplast Time 26.1 SEC D-Dimer Quantitative (PE/DVT) 6.63 MG/L FEU Blood Urea Nitrogen 9 MG/DL Creatinine 0.76 MG/DL Random Glucose 140 MG/DL Total Protein 7.7 GM/DL Albumin 3.1 GM/DL Calcium Level 8.1 MG/DL Alkaline Phosphatase 176 U/L Aspartate Amino Transf (AST/SGOT) 117 U/L Alanine Aminotransferase (ALT/SGPT) 112 U/L Total Bilirubin 0.3 MG/DL Sodium Level 144 MEQ/L Potassium Level 3.6 MEQ/L Chloride Level 112 MEQ/L Carbon Dioxide Level 23.6 MEQ/L Anion Gap 8 MEQ/L Estimat Glomerular Filtration Rate 93 ML/MIN Troponin I LESS THAN 0.02 NG/ML Thyroid Stimulating Hormone 3rd Gen 1.140 uIU/ML MDM Medical Decision Making Medical Screen Exam Complete: Yes Emergency Medical Condition: Yes Medical Record Reviewed: Yes Interpretation(s) Last 24 hours Impressions Lower Extremity Ultrasound 06/05/17 191 Signed Impressions: Service Date/Time: Monday, June 05, 2017 20:28 - CONCLUSION: 1. Negative for lower extremity deep venous thrombosis. Salazar Unger MD Chest X-Ray 06/05/17 1840 Signed Impressions: Service Date/Time: Monday, June 05, 2017 19:16 - CONCLUSION: The lungs CBC & BMP Diagram 06/05/17 19:54 Total Protein 7.7, Albumin 3.1 L, Calcium Level 8.1 L, Alkaline Phosphatase 176 H, Aspartate Amino Transf (AST/SGOT) 117 H, Alanine Aminotransferase (ALT/SGPT) 112 H, Total Bilirubin 0.3 are clear. Salazar Unger MD Differential Diagnosis Differential diagnoses: Anxiety, PE, acute pain, chronic pain, electrolyte abnormality, wound infection, postoperative pain Narrative Course IV access is obtained. Patient's given 1 mg Ativan IV with good results. Will obtain basic laboratory tests including a d-dimer. We'll ultrasound the left lower leg. Patient's leg does not reveal concerns for a septic joint or obvious DVT but we will further investigate due to her complaints of anxiety and increased shortness of breath. The patient is feeling much better after her Ativan. She denies any shortness of breath. No chest pain. Ultrasound of the left lower show me is negative for DVT. Patient has a elevated d-dimer I suspect this is secondary to her most recent surgery. I do not believe that she has any acute infectious process in her knee. The patient is advised to follow-up with her orthopedist tomorrow for recheck as well as following up with primary care doctor in the next few days. Diagnosis Primary Impression: anxiety Additional Impression: postop pain Patient Instructions: General Instructions Departure Forms: Work Release, Enter return to work date: Jun 05, 2017 Tests/Procedures Additional Instructions: Rest. Medications as directed. Follow-up with Dr. Wallace tomorrow for recheck. Follow-up with your primary care doctor in the next 1-2 days. Return to the ER if any problems. Med/Other Pt SpecificInfo: Prescription(s) given Scripts Lorazepam (Ativan) 1 Mg Tab 1 MG PO Q8H Y for ANXIETY AND/OR AGITATION, #12 TAB 0 Refills Prov: Avelino Mehta MD 06/05/17 Disposition: 01 DISCHARGE HOME Condition: Stable Patrick Vasques Jun 05, 2017 19:29
--- NOTE | 2017-06-05 20:11 | RADRPT ---
EXAM DATE/TIME: 06/05/2017 19:16 [facility] COMPARISON: CHEST SINGLE AP, May 29, 2017, 6:52. INDICATIONS : Short of breath. MEDICAL HISTORY : None. SURGICAL HISTORY : None. ENCOUNTER: Initial ACUITY: 3 days PAIN SCORE: 0/10 LOCATION: Bilateral chest FINDINGS: A single view of the chest demonstrates the lungs to be symmetrically aerated without evidence of mas s, infiltrate or effusion. The cardiomediastinal contours are unremarkable. Osseous structures are intact. CONCLUSION: The lungs are clear. Salazar Unger MD on June 05, 2017 at 20:08 Board Certified Radiologist. This report was verified electronically.
[2017-06-05 20:15] LABS: AUTOMATED NEUTROPHIL # 2.4 TH/MM3 (1.8-7.7); BASOPHIL % 0.9 % (0.0-2.0); EOSINOPHIL # 0.2 TH/MM3 (0-0.4); EOSINOPHIL % 3.9 % (0.0-4.0); HEMATOCRIT 33.6 % (35.0-46.0); HEMOGLOBIN 11.1 GM/DL (11.6-15.3); LYMPH % 40.6 % (9.0-44.0); MEAN CELL VOLUME 92.6 FL (80.0-100.0); MEAN CORPUSCULAR HEMOGLOBIN 30.5 PG (27.0-34.0); MEAN CORPUSCULAR HGB CONC 32.9 % (32.0-36.0); MEAN PLATELET VOLUME 8.7 FL (7.0-11.0); MONO % 6.1 % (0.0-8.0); MONOCYTE # 0.3 TH/MM3 (0-0.9); NEUT % 48.5 % (16.0-70.0); PLATELET COUNT 365 TH/MM3 (150-450); RED BLOOD COUNT 3.63 MIL/MM3 (4.00-5.30); RED CELL DISTRIBUTION WIDTH 13.2 % (11.6-17.2); WHITE BLOOD COUNT 4.9 TH/MM3 (4.0-11.0)
[2017-06-05 20:34] LABS: ALBUMIN 3.1 GM/DL (3.4-5.0); ALT (GPT) 112 U/L (10-53); AST (GOT) 117 U/L (15-37); BICARBONATE 23.6 MEQ/L (21.0-32.0); BLOOD UREA NITROGEN 9 MG/DL (7-18); CALCIUM 8.1 MG/DL (8.5-10.1); CHLORIDE 112 MEQ/L (98-107); CREATININE 0.76 MG/DL (0.50-1.00); GLOMERULAR FILTRATION RATE 93 ML/MIN (>89); GLUCOSE,RANDOM 140 MG/DL (74-106); SODIUM (NA) 144 MEQ/L (136-145)
[2017-06-05 20:45] LABS: ALKALINE PHOSPHATASE 176 U/L (45-117); TOTAL BILIRUBIN ADULT 0.3 MG/DL (0.2-1.0); TOTAL PROTEIN 7.7 GM/DL (6.4-8.2); TROPONIN I LESS THAN 0.02 NG/ML (0.02-0.05)
[2017-06-05 20:50] VITALS: BP 159/83; PULSE 82; RESP 16; O2SAT 100
[2017-06-05] MEDS ORDERED: ONDANSETRON HCL 4 MG/2 ML VIAL IV PUSH ONE (21:00)
[2017-06-05 21:20] LABS: D-DIMER 6.63 MG/L FEU (0.00-0.50)
[2017-06-05 21:21] LABS: INTERNATIONAL NORMALIZED RATIO 1.1 RATIO; PROTHROMBIN TIME - PATIENT 10.8 SEC (9.8-11.6)
[2017-06-05 22:00] VITALS: BP 135/75; PULSE 86; RESP 16; O2SAT 100
--- NOTE | 2017-06-05 22:21 | RADRPT ---
EXAM DATE/TIME: 06/05/2017 20:28 [facility] COMPARISON: US LEG LEFT VENOUS DOPPLER, May 29, 2017, 7:34. INDICATIONS : Left leg pain. MEDICAL HISTORY : Congestive heart failure. Myocardial infarction. Hypertension. Hypothyroidism. Irregular heartbeat . Asthma. Sleep apnea. Ulcer. GERD. Arthritis. Diabetes. PTSD. Anxiety. Measles. Blood transfusion. SURGICAL HISTORY : Cholecystectomy. Fusion, lumbar. Hysterectomy. Bilateral carpal tunnel surgery. Bilateral knee repla cement. Hiatal hernia repair. Gastric bypass. Bilateral cataract removal. ENCOUNTER: Initial ACUITY: 2 weeks PAIN SCORE: 4/10 LOCATION: Left leg. TECHNIQUE: Venous ultrasound of the leg was performed from the inguinal ligament to the proximal calf. Real-hortencia e, color Doppler and spectral tracing, compression and augmentation techniques were used. FINDINGS: There is normal compressibility of the deep venous system from the inguinal region to the proximal ca lf. No echogenic clot is seen in the lumen of the common femoral, femoral, popliteal, and posterior tibial veins. There is a normal response of the venous system to proximal and distal augmentation an d respiration. CONCLUSION: 1. Negative for lower extremity deep venous thrombosis. Salazar Unger MD on June 05, 2017 at 22:18 Board Certified Radiologist. This report was verified electronically.
[2017-06-05] MEDS ORDERED: LORA-474 PO (22:27)
--- NOTE | 2017-06-06 15:26 | EKG ---
Date Performed: 06/05/2017 Time Performed: 19:51:44 PTAGE: 61 years EKG: Sinus rhythm NORMAL ECG PREVIOUS TRACING : 05/29/2017 06.54 Compared to prior tracing no significant change DOCTOR: Caesar Coughlin Interpretating Date/Time 06/06/2017 15:24:19
== END 2017-06-05 23:00 | disposition home or self-care (01) ==
LOC: NEPD 18:07
DX: F43.10 Post-traumatic stress disorder, unspecified (principal); G89.18 Other acute postprocedural pain; M25.562 Pain in left knee; R00.0 Tachycardia, unspecified; J45.909 Unspecified asthma, uncomplicated; E11.9 Type 2 diabetes mellitus without complications; I11.0 Hypertensive heart disease with heart failure; E03.9 Hypothyroidism, unspecified; Z88.6 Allergy status to analgesic agent
CPT/HCPCS: 71010; 80053; 84443; 84484; 85025; 85379; 85610; 85730; 93005; 93971; 96374; 96375; 99285; J2060; J2405; J3010

== ENCOUNTER 2017-12-04 10:47 | Inpatient (IN) | payer MEDICARE, OTHER ==
[~2017-12-04] VITALS: Ht 165.1 cm; Wt 97.0 kg
[~2017-12-04 10:47] MED LIST changes: -CPMMACHINE; -ENOX30P SQ; +LORA-474 PO
[2017-12-04] MEDS ORDERED: ceFAZolin 2 GM PREMIX 50 ML IV SCH (11:30)
[2017-12-04] MEDS ORDERED: POVIDONE IODINE 5% (ANTISEPSIS KIT) 4 APPLICATIONS EACH NARE PRN (11:30)
[2017-12-04] MEDS ORDERED: APREPITANT 40 MG CAP PO SCH (11:30)
[2017-12-04] MEDS ORDERED: CHLORHEXIDINE GLUCONATE 2 % 1 PACK (2 CLOTHS) TOPICAL PRN (11:30)
[2017-12-04] MEDS ORDERED: METOPROLOL TARTRATE 25 MG TAB PO PRN (11:30)
[2017-12-04] MEDS ORDERED: LACTATED RINGER'S 1000 ML IV PRN (11:30)
[2017-12-04] MEDS ORDERED: ONDANSETRON HCL 4 MG/2 ML VIAL IV PUSH SCH (11:30)
[2017-12-04] MEDS ORDERED: ACETAMINOPHEN 1000 MG/100 ML 100 ML IV SCH (11:30)
[2017-12-04] MEDS ORDERED: SODIUM CHLORID 0.9% 500 ML IV PRN (11:30)
[2017-12-04] MEDS ORDERED: LIDOCAINE HCL 1% PF 5 ML SYRINGE OTHER ONE (12:00)
[2017-12-04] MEDS ORDERED: LACTATED RINGER'S 1000 ML INJ 1,000 ML IV ONE (12:00)
[2017-12-04] MEDS ORDERED: GLYCOPYRROLATE 1 MG/5 ML SYRINGE IV PUSH ONE (12:00)
[2017-12-04] MEDS ORDERED: ROCURONIUM INJ 50 MG/5 ML SYRINGE IV PUSH ONE (12:00)
[2017-12-04] MEDS ORDERED: PROPOFOL 200 MG/20 ML AMP IV ONE (12:00)
[2017-12-04] MEDS ORDERED: PHENYLEPH/NS 1000 MCG/10 ML SYR IV ONE (12:00)
[2017-12-04] MEDS ORDERED: DEXAMETHASONE SOD PHOS 4 MG/ML VIAL IV ONE (12:00)
[2017-12-04] MEDS ORDERED: NEOSTIGMINE 5 MG/5 ML SYRINGE IV PUSH ONE (12:00)
[2017-12-04] MEDS ORDERED: BUPIVACAINE/EPINEPHRINE 0.5% PF 30 ML VIAL ONE (12:43)
[2017-12-04] MEDS ORDERED: DO NOT ADM ANY ANTICOAGULANT DRUGS PRN (14:35)
[2017-12-04] MEDS ORDERED: MIDAZOLAM HCL 2 MG/2 ML VIAL ONE (14:41)
[2017-12-04] MEDS ORDERED: *morphine SULFATE 4 MG/ML PERIprocedure ONLY ONE (15:00)
[2017-12-04] MEDS ORDERED: *morphine SULFATE 10 MG/ML PERIprocedure ONLY ONE ×2 (15:14→15:32)
[2017-12-04] MEDS ORDERED: MORPHINE SULFATE 4 MG/ML INJ IV PUSH PRN ×2 (16:00)
[2017-12-04] MEDS: SODIUM CHLOR 0.9% 1000 ML INJ 1,000 ML IV SCH (16:00)
[2017-12-04] MEDS ORDERED: ONDANSETRON ODT 4 MG TAB PO PRN (16:00)
[2017-12-04] MEDS ORDERED: oxyCODONE/ACETAMINOPHEN 5 MG/325 MG TAB PO PRN (16:00)
[2017-12-04] MEDS ORDERED: HYDROmorphone HCL PF 2 MG/ML VIAL ONE (16:08)
[2017-12-04] MEDS ORDERED: *diphenhydrAMINE HCL 50 MG/ML VIAL PERIprocedural Use ONLY ONE ×2 (16:24→16:49)
[2017-12-04 18:00] VITALS: BP 118/63; PULSE 96; RESP 18; TEMP 97.6; O2SAT 93
[2017-12-04 20:00] VITALS: BP 110/55; PULSE 80; RESP 16; TEMP 97.5; O2SAT 96
[2017-12-05] VITALS: BP 140/73; PULSE 72; RESP 16; TEMP 97.8; O2SAT 96
[2017-12-05] MEDS: oxyCODONE/ACETAMINOPHEN 5 MG/325 MG TAB PO PRN ×4 (00:31→20:09)
[2017-12-05 04:00] VITALS: BP 123/56; PULSE 55; RESP 16; TEMP 97.7; O2SAT 97
[2017-12-05] MEDS: SODIUM CHLOR 0.9% 1000 ML INJ 1,000 ML IV SCH ×2 (04:45→20:10)
[2017-12-05 08:00] VITALS: BP 133/60; PULSE 67; RESP 18; TEMP 98.2; O2SAT 95
[2017-12-05] MEDS ORDERED: ALBUTEROL SULFATE 90 MCG/ACT HFA 8 GM INHALER INH PRN (10:45)
[2017-12-05 12:00] VITALS: BP 119/56; PULSE 73; RESP 18; TEMP 99.1; O2SAT 95
[2017-12-05] MEDS: metFORMIN HCL 500 MG TAB PO SCH ×2 (12:07→17:37)
[2017-12-05] MEDS: LOSARTAN 50 MG TAB PO SCH ×2 (12:07→20:09)
[2017-12-05] MEDS: DULoxetine HCl DR 20 MG CAP PO SCH (12:07)
[2017-12-05] MEDS: LACTOBACILLUS ACIDOPHILUS TAB PO SCH ×2 (12:07→17:35)
[2017-12-05] MEDS ORDERED: diphenhydrAMINE HCL 50 MG CAP PO PRN (15:00)
--- NOTE | 2017-12-05 15:08 | HHI.PR ---
Subjective Subjective Notes Normal post-operative course Objective Vitals/I&O Vital Signs Date Time Temp Pulse Resp B/P (MAP) Pulse Ox O2 Delivery O2 Flow Rate FiO2 12/05/17 12:00 99.1 73 18 119/56 (77) 95 12/04/17 17:00 Nasal Cannula 2 Abdomen: Post-op tenderness Extremities: No edema Wound Wound : Wound Location: Abdomen Appearance: Clean & Dry A/P Assessment and Plan 62yo POD#1 diagnostic laparoscopy with lysis of adhesions Transition to regular bariatric diet Continue with frequent ambulation The exam, history, and the medical decision-making described in the above note were completed with the assistance of the mid-level provider. I reviewed and agree with the findings presented. I attest that I had a [id number] encounter with the patient on the same day, and personally performed and documented my assessment and findings in the medical record. Discharge Planning D/C home later today Attending Statement The exam, history, and the medical decision-making described in the above note were completed with the assistance of the mid-level provider. I reviewed and agree with the findings presented. I attest that I had a [id number] encounter with the patient on the same day, and personally performed and documented my assessment and findings in the medical record. Yoan Tapia Dec 05, 2017 15:08 Aroldo Felix MD Dec 05, 2017 15:28
[2017-12-05 16:00] VITALS: BP 149/70; PULSE 94; RESP 18; TEMP 98.2; O2SAT 97
[2017-12-05 20:00] VITALS: BP 130/66; PULSE 70; RESP 18; TEMP 98.3; O2SAT 94
[2017-12-05] MEDS ORDERED: LORATADINE 10 MG TAB PO SCH (21:00)
[2017-12-06] VITALS: BP 121/56; PULSE 77; RESP 18; TEMP 98.6; O2SAT 95
[2017-12-06] MEDS: oxyCODONE/ACETAMINOPHEN 5 MG/325 MG TAB PO PRN ×3 (00:25→13:27)
[2017-12-06 08:00] VITALS: PULSE 78; RESP 18; TEMP 98.2; O2SAT 92
[2017-12-06] MEDS: LOSARTAN 50 MG TAB PO SCH (08:54)
[2017-12-06] MEDS: LACTOBACILLUS ACIDOPHILUS TAB PO SCH ×2 (08:54→13:26)
[2017-12-06] MEDS: metFORMIN HCL 500 MG TAB PO SCH (08:54)
[2017-12-06] MEDS: DULoxetine HCl DR 20 MG CAP PO SCH (08:54)
[2017-12-06] MEDS: SODIUM CHLOR 0.9% 1000 ML INJ 1,000 ML IV SCH (08:54)
[2017-12-06 12:00] VITALS: BP 171/78; PULSE 60; RESP 18; TEMP 98; O2SAT 92
--- NOTE | 2017-12-06 15:33 | HHI.PR ---
Subjective Subjective Notes stomach pain improving normal post-operative course Objective Vitals/I&O Vital Signs Date Time Temp Pulse Resp B/P (MAP) Pulse Ox O2 Delivery O2 Flow Rate FiO2 12/06/17 12:00 98.0 60 18 171/78 (109) 92 12/04/17 17:00 Nasal Cannula 2 Abdomen: Post-op tenderness Extremities: Perfused Wound Wound : Wound Location: Abdomen Appearance: Clean & Dry A/P Assessment and Plan 62yo POD#2 diagnostic laparoscopy with lysis of adhesions Continue with regular bariatric diet Continue with frequent ambulation The exam, history, and the medical decision-making described in the above note were completed with the assistance of the mid-level provider. I reviewed and agree with the findings presented. I attest that I had a [id number] encounter with the patient on the same day, and personally performed and documented my assessment and findings in the medical record. Discharge Planning D/C home today Attending Statement The exam, history, and the medical decision-making described in the above note were completed with the assistance of the mid-level provider. I reviewed and agree with the findings presented. I attest that I had a [id number] encounter with the patient on the same day, and personally performed and documented my assessment and findings in the medical record. Yoan Tapia Dec 06, 2017 15:33 Aroldo Felix MD Dec 14, 2017 20:15
[2017-12-06 16:00] VITALS: BP 155/70; PULSE 70; RESP 18; TEMP 97.9; O2SAT 95
--- NOTE | 2017-12-13 15:49 | MP ---
cc: Aroldo Felix MD DATE OF OPERATION: 12/04/2017 DATE OF PROCEDURE: 12/04/2017 PREOPERATIVE DIAGNOSIS: Abdominal pain, questionable internal hernia. POSTOPERATIVE DIAGNOSIS: No evidence of internal hernia. PROCEDURE PERFORMED: Diagnostic laparoscopy with lysis of adhesions. SURGEON: Aroldo Felix MD ANESTHESIA: General endotracheal anesthesia. INDICATION FOR PROCEDURE: This is a patient who has undergone a gastric bypass in the past. She has been experiencing of intermittent abdominal pain following meals located in her epigastrium. All prior workups have been negative. As a result, she was brought in for laparoscopy after obtaining informed consent. FINDINGS: No evidence of obstruction. The patient did have adhesions in her jejunojejunostomy, which appeared as a partial kinking of the bowel due to this. No evidence of dilation of bowel proximally or distally. No Kaba hernia identified. No hernia at enteroenterostomy identified. As a result, these adhesions were . SPECIMENS: None. COMPLICATIONS: None. DESCRIPTION OF PROCEDURE: The patient was brought to the operating room, placed on the operating table in supine position. Bilateral sequential inflation devices placed on the lower extremities. General anesthesia instituted. Antibiotics initiated. The abdomen was prepped and draped sterilely. A point in the epigastrium at the patient's old scar was anesthetized with 0.25% Marcaine with epinephrine. Skin incision was made, 5 mm Optiview port placed under direct vision and pneumoperitoneum created. Under direct vision, two 5 mm left upper quadrant and a 5 mm right upper quadrant port was placed. Prior to placement of all ports, the skin and peritoneum anesthetized with 0.25% Marcaine with epinephrine. The patient's abdominal cavity was inspected. The Pancho limb was inspected. Gastric pouch. No evidence of dilation of the gastric pouch. No evidence of dilation of the Pancho limb. There were adhesions at the jejunojejunostomy. These adhesions were sharply , straightening out the bowel. the small bowel proximal to the jejunojejunostomy was then plicated to the biliopancreatic limb. The common channel was then inspected to the ileocecal valve. There was no evidence of obstructions or adhesions. There was no Kaba hernia identified or hernia at the enteroenterostomy. At this point, the operation was terminated. CO2 was released. All ports were removed. All skin incisions were closed with 4-0 Monocryl. The abdominal wall was cleaned and a sterile dressing placed. The patient was awakened and taken to the recovery room. MD MADELAINE Mcgee/JANE , 03:21 PM , 03:48 PM
== END 2017-12-06 17:32 | disposition home or self-care (01) | DRG 337 ==
LOC: HSDC 10:47 → N07B 14:36 → OBSVTOIN 12-05 15:35
PROVIDERS: ADMIT Surgery; ATTEND Surgery
PROC: 0DNA4ZZ Release Jejunum, Percutaneous Endoscopic Approach (ICD-10-PCS; principal; 2017-12-04 12:58)
DX: K66.0 Peritoneal adhesions (postprocedural) (postinfection) (principal); E11.22 Type 2 diabetes mellitus with diabetic chronic kidney disease; E11.40 Type 2 diabetes mellitus with diabetic neuropathy, unspecified; Z79.84 Long term (current) use of oral hypoglycemic drugs; Z98.84 Bariatric surgery status; E78.5 Hyperlipidemia, unspecified; K21.9 Gastro-esophageal reflux disease without esophagitis; I12.9 Hypertensive chronic kidney disease with stage 1 through stage 4 chronic kidney disease, or unspecified chronic kidney disease; N18.9 Chronic kidney disease, unspecified; D64.9 Anemia, unspecified; M19.90 Unspecified osteoarthritis, unspecified site; E66.9 Obesity, unspecified; Z68.35 Body mass index [BMI] 35.0-35.9, adult
CPT/HCPCS: J0131; J0690; J1100; J1170; J1200; J2250; J2270; J2370; J2405; J2710; J3010; J7030; J7120; J8501; Q0163